=== PATIENT | male | born 1955 | race Caucasian/White ===

== ENCOUNTER → 2016-03-06 | Outpatient (CLI) | payer BC ==
[~2016-03-06] MED LIST: LEVO125T72 PO; RANI300T PO; TPRSR/25 PO
--- NOTE | 2016-03-07 05:37 | PAP/PSG TECHNICIAN REPORT ---
[facility] Air Filler Polysomnogram Report Study name: None Report date: 03/07/2016 Study date: 03/06/2016 Referring Physician: DR. BURGOS Name: CHANDLER DE LEON Interpreting Physician: Tigre Burgos M.D. Date of : 1955 Air Filler: Addison Paulino RPSTORRES. Sex: Male Age: 61 StudyType: PSG PAP Weight: 277 lbs 49.5 cm Height: 61 years, Height 5' 9" Neck Circum: BMI: 40.9 Medications: DICLOFEN SODIUM 1%, RANITIDINE HCL 300 MG, ATORVASTATIN CALCIUM 40 MG, SYHTHROID 125 MCG, ASPIRIN 81 MG, BYSTOLIC 5 MG Patient History PATIENT HAS HISTORY OF JESSICA AND HAS BEEN WEARING CPAP FOR MANY YEARS. HE CURRENTLY WEARS NASAL PILLOWS AND HAS BEEN HAVING TROUBLE WITH THE LEAK. HE HASN'T BEEN ABLE TO HAVE GOOD QUALITY OF SLEEP DUE TO THIS ISSUE. HE IS HERE TODAY FOR AN UPDATE ON HIS CPAP. ESS = 7 RM 4 Parameters Monitored NPSG: E1-M2, E2-M1, Fp1-M2, Fp2-M1, F3-M2, F4-M2, F4-M1, C3-M2, C4-M2, C4-M1, O1-M2, O2-M2, O2-M1, T3-M2, T4-M1, P3-M2, P4-M1, CHIN1, CHIN2, HR, EKG, Legs, PFLOW, SNOR, FLOW, CFLOW, Tidal Volume, THOR, ABDO, SpO2, PLTH, CPRESS, ETCO2 Wave, ETCO2, pH Sleep Architecture Sleep Stages Time at Lights Off 10:06:10 PM STAGES Time (min.) TST (%) Time at Lights On 5:14:10 AM Wake 39.5 -- Total Recording Time (TRT) 428.50 min. N1 30.5 8 Total Sleep Period (TSP) 411.0 min. N2 258.5 67 Total Sleep Time (TST) 388.5min. N3 27.0 7 Awake Time 40.0 min. REM 72.5 19 Wake after Sleep Onset 29.5 min. Sleep Efficiency (SE) 91 % Sleep Onset Latency (MARC) 10.0 min. Number of Stage 1 Shifts None Awakenings 17 Stage Changes 81 Number of REM periods 5 REM 72.5 19 REM Latency 99.0 min. NREM 316.0 81 Body Position Analysis Supine Right Left Side Prone Vertical Total Sleep Time (min.) 209.9 125.2 69.3 194.57 0.0 0.0 Total Sleep Time (%) 50% 32% 18% 50 0% N/A% Total Sleep Time REM (min.) 43.5 29.0 0.0 None 0.0 0.0 Total Sleep Time NREM (min.) 150.4 96.2 69.3 None 0.0 0.0 Intermittent Wake (min.) 16.0 18.9 4.6 None 0.0 0.0 Total Sleep Period (%) 49% None None None None None Arousals Myoclonus (PLM) * Events Count Index Events Count Index Spontaneous 25 4 Events Awake (PLMW) 24 36.5 Respiratory 9 1.4 Events Asleep w/ Arousal (PLMA) 5 0.8 PLM 5 1 Events Asleep w/o Arousal (PLMS) 32 4.9 Snoring 2 0 Total Asleep 37 5.7 Total 41 6 Total 61 9 Respiratory Analysis * CA OA MA CH H RERA Total Count 0 0 0 0 42 4 42 Index 0.0 0.0 0.0 0 6.5 1 7.1 Mean Duration 0.0 0.0 0.0 0.00 19.2 15.9 18.9 Longest Duration 0.0 0.0 0.0 0.00 0.0 20.0 31.3 Respiratory Event Summary Total Supine ~Supine Right Left Prone REM NREM Apneas Count 0 0 0 0 0 N/A 0 0 Index 0.0 0 0 0.0 0.0 N/A 0 0 Hypopneas (4% Desat) Count 42 20 22 17 5 N/A 12 30 Index 6.5 6.2 7 8.1 4.3 N/A 9.9 5.7 Apneas & All Hypopneas Count 42 20 22 17 5 N/A 12 30 Index 6.5 6 7 8 4 N/A 9.9 5.7 Respiratory Events (Barrel Loader+All Hyp+RERA) Count 42 22 24 17 7 N/A 12 30 Index 7.1 7 7 8.1 6.1 N/A 9.9 6.5 Respiratory Related Arousal Count 9 22 5 2 3 N/A 0 9 Index 1.4 1 2 1 3 N/A 0 2 Snoring Analysis Supine Right Left Prone REM NREM Total Snore duration 25.1 min Snores count 121 515 222 N/A 5 853 858 Snore mean duration 1.8 Sec Snores index 37 247 192 N/A 4.1 162.0 132.5 TST with snoring (%) 6.5% Desaturation Event Summary: Minimum %SpO2 Event Count Mean/Min/Max Duration(sec.) Desaturation Index % Time In Bed > 90 45 35.5 / 8.8 / 92.2 7.3 87.3 86 - 90 11 26.0 / 14.3 / 44.0 12.2 12.7 81 - 85 0 N/A 0.0 0.0 76 - 80 0 N/A 0.0 0.0 71 - 75 0 N/A 0.0 0.0 66 - 70 0 N/A 0.0 0.0 61 - 65 0 N/A 0.0 0.0 56 - 60 0 N/A 0.0 0.0 51 - 55 0 N/A 0.0 0.0 < 50 0 N/A 0.0 0.0 Total REM NREM Awake <50% 0.0 min. 0.0 min. 0.0 min. 0.0 min. 51 - 60% 0.0 min. 0.0 min. 0.0 min. 0.0 min. 61 - 70% 0.0 min. 0.0 min. 0.0 min. 0.0 min. 71 - 80% 0.0 min. 0.0 min. 0.0 min. 0.0 min. 81 - 90% 54.1 min. 7.9 min. 43.3 min. 3.0 min. 91 - 100% 371.9 min. 64.6 min. 272.7 min. 34.5 min. Average 92 92 92 94 Minimum SpO2 84 88 84 84 Desaturation Event Index 6.6 10.8 5.3 9.1 # Desat. Events below 89% 17 2 15 0 Time(%) with Saturation below 89% 2.8 0.1 2.6 0.1 Time(min.) with Saturation below 89% 11.9 0.6 11.1 0.3 Time (mins) REM (mins) NREM (mins) % of TST SpO2 Below 90% 32 10 N22 6.4 SpO2 Below 88% 9 0 0 1 Heart Rate Analysis Min (bpm) Max (bpm) Average (bpm) Awake 52 83 63 NREM 52 81 59 REM 52 66 57 Overall 52 81 59 Supplemental O2 Values Minimum O2 level: None Value Start Time End Time Air Filler Comments Mr. De Leon slept in the right, left and supine positions. No cardiac arrhythmia noted. Leg movements noted. No bruxism noted. CPAP was initiated at +4 CMH2O and up-titrated to an optimal level of +11 CMH2O, which nearly eliminated all respiratory events and snoring. A Singh and Paykel Eson size medium nasal mask was used during titration Mr. De Leon awoke to use the restroom 0 times during the night. Mr. De Leon stated I slept as well as I do when I am in my own bed. The final report will be interpreted and signed by a sleep physician. The completed physician report will then be placed in the patient medical record. Therapy Event: Therapy (cm H20) 4 6 7 8 9 10 11 Total Time at Pressure (min.) 28.0 14.9 13.7 49.8 21.7 78.0 221.9 TST at Pressure (min.) 18.0 14.9 12.7 46.3 21.7 73.0 201.9 # Periods 1 1 1 1 1 1 1 Sleep Onset (min.) 10.0 0.0 0.0 0.0 0.0 0.0 0.0 REM Onset (min.) N/A N/A N/A N/A 2.6 0.0 42.9 Sleep Efficiency % 64 100 92 93 100 93 91 Wakefulness (%) 35.8 0.0 7.3 7.0 0.0 6.4 9.0 Wakefulness (min.) 10.0 0.0 1.0 3.5 0.0 5.0 20.0 NREM 1 (%) 10.7 0.0 7.3 7.0 0.0 7.7 7.7 NREM 1 (min.) 3.0 0.0 1.0 3.5 0.0 6.0 17.0 NREM 2 (%) 53.5 100.0 85.4 70.9 12.1 39.8 66.7 NREM 2 (min.) 15.0 14.9 11.7 35.3 2.6 31.1 147.9 NREM 3 (%) 0.0 0.0 0.0 15.1 0.0 14.7 3.6 NREM 3 (min.) 0.0 0.0 0.0 7.5 0.0 11.5 8.0 REM (%) 0.0 0.0 0.0 0.0 87.9 31.3 13.1 REM (min.) 0.0 0.0 0.0 0.0 19.1 24.4 29.0 # Arousals 1 2 2 11 1 5 19 Arousal Index 3.3 8.0 9.5 14.3 2.8 4.1 5.6 # Snore 194 186 145 282 9 4 38 Snore Index 647.8 747.5 685.2 365.6 24.9 3.3 11.3 AHI 3.3 40.2 23.6 10.4 16.6 7.4 0.9 AHI Supine N/A N/A N/A 22.3 16.6 12.9 0.5 AHI Non-Supine 3.3 40.2 23.6 6.8 N/A 0.0 1.5 NREM AHI 3.3 40.2 23.6 10.4 0.0 4.9 0.7 REM AHI N/A N/A N/A N/A 18.9 12.3 2.1 RDI 3.3 40.2 23.6 15.6 16.6 7.4 0.9 # Obstructive 0 0 0 0 0 0 0 # Central Ap 0 0 0 0 0 0 0 # Mixed 0 0 0 0 0 0 0 # Hypopneas 1 10 5 8 6 9 3 RERAS 0 0 0 4 0 0 0 Total Respiratory Events 1 10 5 12 6 9 3 Time Below SpO2 89.00% (min.) 2.2 4.9 2.6 1.0 0.1 0.5 0.3 Mean NREM SpO2 (%) 90 89 90 91 92 93 93 Mean REM SpO2 (%) N/A N/A N/A N/A 93 92 92 Mean Sleep SpO2 (%) 90 89 90 91 93 93 93 Min NREM SpO2 (%) 87 86 84 88 91 90 88 Min REM SpO2 (%) N/A N/A N/A N/A 88 88 89 Position Supine (min.) 0.0 0.0 0.0 10.8 21.7 41.7 119.7 Position Non-supine (min.) 18.0 14.9 12.7 35.5 0.0 31.2 82.2 LM Index Sleep 0.0 0.0 9.5 20.7 11.1 7.4 1.8 LM Index NREM 0.0 0.0 9.5 20.7 0.0 7.4 1.7 LM Index REM N/A N/A N/A N/A 12.6 7.4 2.1 Mean Heart Rate (bpm) 66 68 66 59 58 57 58 Min Heart Rate (bpm) 62 63 57 55 53 52 52
--- NOTE | 2016-03-08 14:44 | POLYSOMNOGRAPH REPORT ---
CLINICAL DATA: A 61-year-old male with BMI of [address] Fritz and myself. He has a history of sleep apnea and has been on CPAP for years. He has been having problems with his interface and nasal pillows with leakage and has not had good quality sleep due to this issue. He is here for a CPAP update. SLEEP ARCHITECTURE: Total sleep period was 411 minutes. Total sleep time was 388.5 minutes divided between 316 minutes of non-REM sleep and 72.5 minutes of REM sleep. Sleep onset latency was 10 minutes. REM latency was 99 minutes. Sleep efficiency was 91%. Awake after sleep onset was 29.5 minutes. Sleep consisted of stage N1 8%, N2 67%, N3 7%, and REM 19%. AROUSAL DATA: 41 arousals were recorded for an index of 6 per hour. PERIODIC LIMB MOVEMENTS DATA: 37 limb movements during sleep were noted for an index of 5.7 per hour. RESPIRATORY DATA: There were 42 hypopneic episodes. The mean duration of hypopnea was 19.2 seconds. OXIMETRY DATA: Mild nocturnal hypoxemia was seen. Oxygen christine was 84% during non-REM sleep. The mean saturation was 92%. Time below 88% was 9 minutes. EKG: Heart rates ranged from 52-81 beats per minute. No arrhythmias were noted. RISK CONTROL MANAGER'S COMMENTS AND TREATMENT SUMMARY: The patient slept in the right, left, and supine position. He used a Singh [employer] Paykel Eson size medium nasal mask. He was started on CPAP and titrated up to 11 cm water pressure. At his final pressure setting, he slept for 201.9 minutes with an AHI of 0.9. IMPRESSION: Obstructive sleep apnea corrected with CPAP 11 cm water pressure utilizing a Singh and Paykel Eson size medium nasal mask. RECOMMENDATIONS: The patient should be changed to the above noted interface and have his CPAP adjusted to 11 cm of water pressure. [facility]
== END | disposition home or self-care (01) ==
LOC: C.NEUR 20:00
PROVIDERS: ATTEND Internal Medicine Pulmonary Disease
DX: G47.33 Obstructive sleep apnea (adult) (pediatric) (principal)

== ENCOUNTER → 2016-07-09 | Outpatient (CLI) | payer BC ==
[2016-07-09 07:58] LABS: ESTIMATED AVERAGE GLUCOSE 114 mg/dl; HA1C FLAG Normal (Normal)
[2016-07-09 08:15] LABS: ALT/SGPT 33 U/L (12-78); BLOOD UREA NITROGEN 11 mg/dl (7-18); BUN/CREATININE RATIO 9.5 (10-20); CARBON DIOXIDE 26 mmol/L (21-32); CHLORIDE 107 mmol/L (98-107); CHOLESTEROL 88 mg/dl (0-200); GLUCOSE 90 mg/dl (70-99); POTASSIUM 4.3 mmol/L (3.5-5.1); SODIUM 142 mmol/L (136-145); TRIGLYCERIDES 100 mg/dl (0-150); VERY LOW DENSITY LIPOPROT CALC 20 mg/dl
[2016-07-09 08:26] LABS: ALB/GLOB RATIO 1.1 (0.9-2); ALKALINE PHOSPHATASE 95 U/L (45-117); AST/SGOT 18 U/L (15-37); HDL CHOLESTEROL 29 mg/dl; LDL CHOLESTEROL CALCULATED 39 mg/dl
[2016-07-09 08:32] LABS: CALCIUM 8.8 mg/dl (8.5-10.1)
== END | disposition home or self-care (01) ==
LOC: C.LAB 07:12
PROVIDERS: ATTEND Family Medicine
DX: R73.01 Impaired fasting glucose (principal); E78.00 Pure hypercholesterolemia, unspecified; E03.9 Hypothyroidism, unspecified; E55.9 Vitamin D deficiency, unspecified

== ENCOUNTER → 2016-08-23 | Outpatient (CLI) | payer BC ==
[2016-08-23 13:43] LABS: URINE APPEARANCE CLEAR (CLEAR); URINE BILIRUBIN NEG (NEG); URINE COLOR YELLOW; URINE EPITHELIAL CELL AUTO 0-5 /lpf (0-5); URINE NITRITE NEG (NEG); URINE PH 5.5 (4.5-7.5); URINE SPECIFIC GRAVITY 1.012 (1.000-1.030); UROBILINOGEN NEG (NEG)
[2016-08-23 13:46] LABS: MANUAL MICROSCOPIC REQUIRED? NO; REVIEW REQ? NO
== END | disposition home or self-care (01) ==
LOC: C.LAB1850 09:21
PROVIDERS: ATTEND Family Medicine
DX: R30.0 Dysuria (principal)

== ENCOUNTER → 2016-10-04 | Outpatient (CLI) | payer BC ==
--- NOTE | 2016-10-08 11:41 | CODING QUERY MEDICAL NECESSITY ---
CQSUPPORTING DIAGNOSIS NEEDED A supporting diagnosis is required for the test/procedure performed on this patient in order for us to be reimbursed by the patient's insurance. Please provide a supporting diagnosis for the following test/procedure listed below next to the test name along with your signature. *If there is no additional diagnosis for this patient that would support the following test/procedure please document that below next to the test/procedure. Test(s)/Procedure(s) that require a supporting diagnosis: DOS 10/04/16 PROSTATE SPECIFIC ANTIGEN (PSA) TEST Provider Signature: Date: Thank you Melisa Pozo [facility] Information Management Once completed, please kindly fax back to [phone] For questions please call [phone]
== END | disposition home or self-care (01) ==
LOC: C.LAB 10:36
PROVIDERS: ATTEND Internal Medicine
DX: R39.9 Unspecified symptoms and signs involving the genitourinary system (principal); Z12.5 Encounter for screening for malignant neoplasm of prostate; R97.20 Elevated prostate specific antigen [PSA]

== ENCOUNTER → 2017-01-21 | Outpatient (CLI) | payer BC ==
[2017-01-21 12:16] LABS: BASO % 0.5 %; BASO ABS # 0.04 K/uL (0-0.2); COMPLETE YES; EOS % 1.6 %; HEMATOCRIT 40.7 % (42-52); IG% 0.4 %; LYMPH % 26.8 %; LYMPH ABS # 2.02 K/uL (1.2-3.4); MEAN CELL VOLUME 88.1 fL (80-100); MEAN CORPUSCULAR HEMOGLOBIN 29.7 pg (25-34); MEAN CORPUSCULAR HGB CONC 33.7 g/dl (32-36); MEAN PLATELET VOLUME 11.3 fL (7.4-10.4); MONO % 7.2 %; NEUT % 63.5 %; PLATELET COUNT 202 K/uL (130-400); RED BLOOD COUNT 4.62 M/uL (4.7-6.1); WHITE BLOOD COUNT 7.53 K/uL (4.8-10.8)
[2017-01-21 12:31] LABS: ESTIMATED AVERAGE GLUCOSE 114 mg/dl; HA1C FLAG Normal (Normal)
[2017-01-21 12:58] LABS: ALT/SGPT 45 U/L (12-78); AST/SGOT 23 U/L (15-37); BLOOD UREA NITROGEN 10 mg/dl (7-18); BUN/CREATININE RATIO 10.6 (10-20); CALCIUM 8.6 mg/dl (8.5-10.1); CARBON DIOXIDE 27 mmol/L (21-32); CHLORIDE 105 mmol/L (98-107); CREATININE 0.93 mg/dl (0.60-1.40); GLUCOSE 106 mg/dl (70-99); POTASSIUM 3.9 mmol/L (3.5-5.1); SODIUM 138 mmol/L (136-145)
[2017-01-21 13:07] LABS: ALB/GLOB RATIO 1.1 (0.9-2); ALKALINE PHOSPHATASE 93 U/L (45-117); CHOLESTEROL 90 mg/dl (0-200); CHOLESTEROL/HDL RATIO 2.4; HDL CHOLESTEROL 38 mg/dl; LDL CHOLESTEROL CALCULATED 27 mg/dl; THYROID STIMULATING HORMONE 0.762 uIu/ml (0.300-4.500); TRIGLYCERIDES 127 mg/dl (0-150); VERY LOW DENSITY LIPOPROT CALC 25 mg/dl
== END | disposition home or self-care (01) ==
LOC: C.LABBFT 10:29
PROVIDERS: ATTEND Internal Medicine
DX: E78.00 Pure hypercholesterolemia, unspecified (principal); R53.83 Other fatigue; I25.10 Atherosclerotic heart disease of native coronary artery without angina pectoris; E03.9 Hypothyroidism, unspecified; R73.01 Impaired fasting glucose; R73.03 Prediabetes; E55.9 Vitamin D deficiency, unspecified

== ENCOUNTER → 2017-02-14 | Outpatient (CLI) | payer OTHER ==
[2017-02-14 12:35] LABS: BASO % 0.4 %; BASO ABS # 0.03 K/uL (0-0.2); EOS % 2.4 %; EOS ABS # 0.17 K/uL (0-0.5); HEMATOCRIT 41.8 % (42-52); HEMOGLOBIN 13.8 g/dL (14.0-18.0); IG# 0.02 K/uL (0.00-0.02); LYMPH % 27.1 %; MEAN CELL VOLUME 87.6 fL (80-100); MEAN CORPUSCULAR HEMOGLOBIN 28.9 pg (25-34); MEAN PLATELET VOLUME 11.2 fL (7.4-10.4); MONO ABS # 0.84 K/uL (0.11-0.59); NEUT % 57.8 %; NEUT ABS # 4.06 K/uL (1.4-6.5); PLATELET COUNT 197 K/uL (130-400); RED CELL DISTRIBUTION WIDTH CV 13.5 % (11.5-14.5); RED CELL DISTRIBUTION WIDTH SD 43.5 fL (36.4-46.3); WHITE BLOOD COUNT 7.02 K/uL (4.8-10.8)
== END | disposition home or self-care (01) ==
LOC: C.LABBFT 09:55
PROVIDERS: ATTEND Internal Medicine
DX: D64.9 Anemia, unspecified (principal)

== ENCOUNTER 2024-01-24 01:36 | Observation (INO) ==
--- NOTE | 2024-01-24 02:05 | Emergency Department Note ---
History of Present Illness General Chief Complaint: Arrhythmia/Palpitations Stated Complaint: IRREG HEART BEAT Time Seen by Provider: 01/24/24 01:41 History of Present Illness Provider Complaint: + palpitations Onset (ago): 1 day(s) Duration: + Intermittent Context: + occurred during rest Associated symptoms: + chest pain, + shortness of breath and + other (Headache. Chills.); no syncope, no vomiting or no cough Home Medications Medication Instructions Recorded Confirmed Type levothyroxine 125 mcg tablet 125 mcg PO DAILY #90 tabs 06/03/23 01/24/24 Rx omeprazole 20 mg capsule,delayed 20 mg PO DAILY #90 caps 06/20/23 01/24/24 Rx release ergocalciferol (vitamin D2) 1,250 50,000 unit PO WK 08/13/23 01/24/24 History mcg (50,000 unit) capsule trazodone 50 mg tablet 50 mg PO HS PRN insomnia 08/13/23 01/24/24 History rosuvastatin 10 mg tablet 10 mg PO DAILY #90 tabs 09/20/23 01/24/24 Rx nebivolol 10 mg tablet 20 mg (2 x 10 mg) PO DAILY #180 10/15/23 01/24/24 Rx tabs semaglutide (weight loss) 1 mg/0.5 1 mg (0.5 mL) subcut Q7D #2 mL 11/13/23 01/24/24 Rx mL subcutaneous pen injector diltiazem HCl 120 mg 120 mg PO DAILY #90 caps 01/02/24 01/24/24 Rx capsule,extended release 24 hr allopurinol 100 mg tablet 100 mg PO DAILY 01/22/24 01/24/24 History zanubrutinib 80 mg capsule 80 mg PO DAILY 01/22/24 01/24/24 History (Brukinsa) tadalafil 5 mg tablet 5 mg PO UD 01/24/24 01/24/24 History Allergies Allergy/AdvReac Type Severity Reaction Status Date / Time Penicillins Allergy Unknown Unknown Verified 01/22/24 07:43 meloxicam Allergy Rash, Verified 01/22/24 07:43 entire body Past Med/Surg History Problem List (Updated 01/24/24 @ 04:13 by Gigi Pérez MD) Palpitations (Acute) Chest pain (Acute) Dyspnea Chest pain syndrome PPD positive, treated (Chronic) Obstructive sleep apnea (Chronic) treated with CPAP Impaired fasting glucose (Chronic) Apical variant hypertrophic cardiomyopathy (Chronic) Hypertension (Chronic) PVC (premature ventricular contraction) (Chronic) Lumbar spinal stenosis (Chronic) Lumbosacral facet joint syndrome Obesity Vitamin B12 deficiency NAFLD (nonalcoholic fatty liver disease) Dyspnea on exertion Medical History PAC (premature atrial contraction) Pre-diabetes Coronary artery disease CLL (chronic lymphocytic leukemia) GERD (gastroesophageal reflux disease) Hypercholesteremia Hypothyroidism Surgical History History of umbilical hernia repair History of rhinoplasty History of colonoscopy (03/11/17) normal, recheck in 10 years Family History Brother History of kidney cancer Thrombocytopenia Father Prostate cancer Mother Leukemia Denies family history of Ovarian cancer Myocardial infarction Breast cancer Colorectal cancer Social History Smoking Status: Never smoker Tobacco Type: Cigarettes Age Started Using Tobacco: 13; Age Quit Using Tobacco: 43; packs per day: 1; Second Hand Exposure: No; Do You Dip or Chew Tobacco: No; Hx Alcohol Use: No (Abstinent for years.) Hx Substance Use: No Preferred Language: Scottish Communication Ability: Effective Visual Impairment: No Limitations Hearing Ability: Normal Labor Relations Analyst Required: No marital status: Current Living Situation: Spouse current occupational status: retired Feels Safe at Home: Yes Childhood Exposure to Second-Hand Smoke: No Diet: Weight Watchers caffeine: Yes (2 cups in AM) during the past year weight has: remained stable Dental Care, Regularly: Yes Physical Activity Frequency: 3-4 Times per Week Physical Activity Frequency Comment: swimming, 60mins Seatbelt Use: always Sunscreen Use: No Assistive Devices: Glasses Physical Exam 2 Vital Signs: Vital Signs - 24 hr 01/24/24 01:40 01/24/24 01:51 01/24/24 01:55 Temperature 37 C Temperature Source Temporal Artery Sc an Pulse Rate 97 H 96 H 96 H Pulse Rate from Sp O2 Sensor 96 H Respiratory Rate 17 19 Respiratory Effort / Characteristics Respiratory Depth Respiratory Patter n Blood Pressure 141/70 H 117/85 Blood Pressure Sendy n 93 95 Pulse Oximetry 95 95 Oxygen Delivery Me thod Room Air Room Air Sepsis Recent Feve r Within 48 Hours No Sepsis New/Unexpla ined Change in Men roberto Status No Sepsis Action Take n by Nursing No Action Required 01/24/24 02:00 01/24/24 02:01 01/24/24 02:03 Temperature Temperature Source Pulse Rate 94 H 93 H Pulse Rate from Sp O2 Sensor 91 H Respiratory Rate 17 18 Respiratory Effort / Characteristics Respiratory Depth Respiratory Patter n Blood Pressure 140/66 Blood Pressure Sendy n 90 Pulse Oximetry 95 96 96 Oxygen Delivery Me thod Room Air Room Air Room Air Sepsis Recent Feve r Within 48 Hours Sepsis New/Unexpla ined Change in Men roberto Status Sepsis Action Take n by Nursing 01/24/24 02:05 01/24/24 03:03 01/24/24 03:30 Temperature Temperature Source Pulse Rate 89 89 Pulse Rate from Sp O2 Sensor 85 79 Respiratory Rate 18 21 Respiratory Effort / Characteristics Non-Labored Sponta neous Respiratory Depth Normal Respiratory Patter n Regular Blood Pressure 122/66 120/65 Blood Pressure Sendy n 84 83 Pulse Oximetry 95 93 Oxygen Delivery Me thod Room Air Room Air Room Air Sepsis Recent Feve r Within 48 Hours Sepsis New/Unexpla ined Change in Men roberto Status Sepsis Action Take n by Nursing Physical Exam: Physical Exam GENERAL: oriented to person, place, and time. appears well-developed and well- nourished. HENT: Exam performed. - Head: Normocephalic and atraumatic. EYES: Conjunctivae and EOM are normal. Right eye exhibits no discharge. Left eye exhibits no discharge. No scleral icterus. NECK: Normal range of motion. Neck supple. No JVD present. CV: Normal rate, regular rhythm, normal heart sounds and intact distal pulses. 1+ pitting edema of the bilateral lower extremities. Palpable radial pulses bue. PULM/CHEST: Effort normal and breath sounds normal. No respiratory distress. No stridor. no wheezes. no rales. ABD: The abdomen is soft. There is no tenderness. NEURO: Motor and sensation grossly intact. SKIN: Skin is warm and dry. He is not diaphoretic. PSYCH: normal mood and affect. Behavior is normal. Judgment and thought content normal. Course Course 0141: The patient was evaluated in room A11. A complete history and physical exam was performed Cardiac monitoring: An order was placed for continuous cardiac monitoring. The monitor shows a rate of 90 with sinus rhythm interpreted by ga 0412: Vital signs stable. White blood cell count 137.47. Hemoglobin 12.6. Lactic acid troponin negative. CTA negative for PE but does show possible pulmonary hypertension. Patient will be admitted to the [facility] team Dr. Haynes states he will evaluate the patient for admission. Administered Medications Discontinued Medications Ioversol (Optiray 320 125ml) 125 ml IV ONCE ONE Stop: 01/24/24 02:30 Last Admin: 01/24/24 02:31 Dose: 118 ml Documented By: HAN Medical Decision Making Laboratory Data Attestation: I reviewed the patient's lab results. 01/24/24 01:53 01/24/24 01:53 Lab Results 01/24/24 01/24/24 01/24/24 Range/Units 01:53 01:55 02:36 WBC 137.47 H* (4.8-10.8) K/ul RBC 4.71 (4.70-6.10) M/uL Hgb 12.6 L (14.0-18.0) g/dl POC Hgb 13.9 L (14.0-18.0) g/dl Hct 41.8 L (42.0-52.0) % POC Hct 41 L (42-52) % MCV 88.7 (80.0-100.0) fL MCH 26.8 (25.0-34.0) pg MCHC 30.1 L (32.0-36.0) g/dL RDW Std Deviation 44.0 (36.4-46.3) fL RDW Coeff of Doe 13.9 (11.5-14.5) % Plt Count 165 (130-400) K/uL MPV 11.5 (9.4-12.4) fL Immature Gran % (Auto) 0.2 % Neut % (Auto) 5.3 % Lymph % (Auto) 93.9 % [place] % (Auto) 0.5 % Eos % (Auto) 0.0 % Baso % (Auto) 0.1 % Neut # (Auto) 7.30 H (1.40-6.50) K/uL Lymph # (Auto) 129.02 H (1.20-3.40) K/uL [place] # (Auto) 0.73 H (0.11-0.59) K/uL Eos # (Auto) 0.03 (0.00-0.50) K/uL Baso # (Auto) 0.11 (0.00-0.20) K/uL Immature Gran # (Auto) 0.28 H (0.01-0.20) K/uL Smudge Cells Present Polychromasia 1+ PT 10.4 (9.0-12.0) Seconds INR 1.0 (0.9-1.1) APTT 28 (21-31) Seconds PTT Ratio 1.0 POC Sodium 139 (135-144) mmol/L Sodium 137 (136-145) mmol/L POC Potassium 4.3 (3.3-5.0) mmol/L Potassium 4.8 (3.5-5.1) mmol/L POC Chloride 105 (101-112) mmol/L Chloride 107 (98-107) mmol/L Carbon Dioxide 25 (21-32) mmol/L POC Total CO2 21 L (24-31) mmol/L Anion Gap 5 (3-11) POC Anion Gap 18.0 (16-25) mmol/L POC BUN 11 (7-18) mg/dl BUN 12 (6-23) mg/dl Creatinine 1.31 (0.6-1.4) mg/dl POC Creatinine 1.4 H (0.6-1.3) mg/dl Est Cr Clr Drug Dosing 64.2 ml/min eGFR 59.29 BUN/Creatinine Ratio 9.2 L (10-20) Glucose 122 H (70-99(Fasting)) mg/dl POC Glucose (other) 122 H (70-99) mg/dl Lactate (0.4-2.0) mmol/L Calcium 8.4 L (8.6-10.3) mg/dl POC Ioniz Calcium Son 1.14 (1.12-1.32) mmol/l Magnesium 1.9 (1.7-2.4) mg/dl Troponin I High Sens 16.8 (0-20) pg/ml Lipase 47 (11-82) U/L SARS-CoV-2 (PCR) NEGATIVE (Negative) Influenza Type A (PCR) Negative (Neg) Influenza Type B (PCR) Negative (Neg) RSV (RT-PCR) Negative (Neg) 01/24/24 Range/Units 02:41 WBC (4.8-10.8) K/ul RBC (4.70-6.10) M/uL Hgb (14.0-18.0) g/dl POC Hgb (14.0-18.0) g/dl Hct (42.0-52.0) % POC Hct (42-52) % MCV (80.0-100.0) fL MCH (25.0-34.0) pg MCHC (32.0-36.0) g/dL RDW Std Deviation (36.4-46.3) fL RDW Coeff of Doe (11.5-14.5) % Plt Count (130-400) K/uL MPV (9.4-12.4) fL Immature Gran % (Auto) % Neut % (Auto) % Lymph % (Auto) % [place] % (Auto) % Eos % (Auto) % Baso % (Auto) % Neut # (Auto) (1.40-6.50) K/uL Lymph # (Auto) (1.20-3.40) K/uL [place] # (Auto) (0.11-0.59) K/uL Eos # (Auto) (0.00-0.50) K/uL Baso # (Auto) (0.00-0.20) K/uL Immature Gran # (Auto) (0.01-0.20) K/uL Smudge Cells Polychromasia PT (9.0-12.0) Seconds INR (0.9-1.1) APTT (21-31) Seconds PTT Ratio POC Sodium (135-144) mmol/L Sodium (136-145) mmol/L POC Potassium (3.3-5.0) mmol/L Potassium (3.5-5.1) mmol/L POC Chloride (101-112) mmol/L Chloride (98-107) mmol/L Carbon Dioxide (21-32) mmol/L POC Total CO2 (24-31) mmol/L Anion Gap (3-11) POC Anion Gap (16-25) mmol/L POC BUN (7-18) mg/dl BUN (6-23) mg/dl Creatinine (0.6-1.4) mg/dl POC Creatinine (0.6-1.3) mg/dl Est Cr Clr Drug Dosing ml/min eGFR BUN/Creatinine Ratio (10-20) Glucose (70-99(Fasting)) mg/dl POC Glucose (other) (70-99) mg/dl Lactate 1.1 (0.4-2.0) mmol/L Calcium (8.6-10.3) mg/dl POC Ioniz Calcium Son (1.12-1.32) mmol/l Magnesium (1.7-2.4) mg/dl Troponin I High Sens (0-20) pg/ml Lipase (11-82) U/L SARS-CoV-2 (PCR) (Negative) Influenza Type A (PCR) (Neg) Influenza Type B (PCR) (Neg) RSV (RT-PCR) (Neg) Imaging Data Radiologist's Impression: Chest CTA 01/24/24 01:47 EXAM: CT angio chest PE protocol CLINICAL HISTORY: chest pain eval for pe, 118 ml optiray 320 TECHNIQUE: Contiguous axial images were obtained from the neck base through the upper abdomen following intravenous administration of iodinated contrast material. Angiographic images were processed, 3D MIP images were acquired for interpretation. If IV contrast material had not been administered, the likelihood of detecting abnormalities relevant to the patient's condition would have been substantially decreased. Coronal and sagittal 3-D MIPs were likewise performed and indicated to increase the sensitivity of detectin diffuse clinically relevant pathology. CT scan was performed according to ALARA (as low as reasonable achievable). 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 FINDINGS: Mild dilatation of pulmonary trunk ,bilateral main pulmonary artery up to subsegmental level with mild tortuosity - suggest possibility of pulmonary arterial hypertension. Diffuse ground-glass haze with multiple area of air trapping are noted involving both lungs giving mosaic attenuation. Adequate contrast bolus without evidence of pulmonary embolism. The central airways are patent. The lungs are clear. No pleural effusion. The heart, aorta, and pulmonary arteries are of normal size and configuration. There are no appreciable coronary artery and aortic atherosclerotic calcifications. No pericardial effusion is identified. The thyroid is unremarkable. No mediastinal, hilar, or axillary lymphadenopathy is noted. No suspicious lytic or sclerotic osseous lesions are identified. IMPRESSION: 1. Mild dilatation of pulmonary trunk ,bilateral main pulmonary artery up to subsegmental level with mild tortuosity - suggest possibility of pulmonary arterial hypertension -new finding. 2. Diffuse ground-glass haze with multiple area of air trapping are noted involving both lungs giving mosaic attenuation-new finding. 3. No evidence of pulmonary embolism. Electronically signed by Frank Sullivan 01-24-2024 03:[address] 01/24/24 01:47 EXAM: CT head/brain w con CLINICAL HISTORY: HEADACHE, 118 ML OPTIRAY 320 TECHNIQUE: Multiple axial images are obtained from the skull base to the vertex with contrast. CT scan was performed according to ALARA (as low as reasonable achievable). COMPARISON: None. FINDINGS: There is cerebral atrophy. No evidence of space occupying lesion, hemorrhage, edema, mass effect, midline shift, extra axial collection, or hydrocephalus is noted. Basal cisterns are symmetric and normal in size and configuration. There are scattered periventricular hypodensities as can be seen with chronic microvascular ischemic changes. The nayak-white matter differentiation is preserved. Visualized paranasal sinuses and mastoid air cells are well aerated. Orbital contents are within normal limits. Bony structures are intact. IMPRESSION: 1. No evidence of acute intracranial abnormality is demonstrated. 2. Chronic microvascular ischemic changes. 3. Cerebral atrophy. Electronically signed by Frank Sullivan 01-24-2024 03:17 AM ECG Data Attestation: I personally reviewed and interpreted this ECG as follows: Indication: palpitations Rate (beats per minute): 96 Rhythm: normal sinus Findings: + 1st degree AV block and + PVC; no ST depression, no ST elevation or no prolonged QT MDM Narrative 0141: The patient was evaluated in room A11. A complete history and physical exam was performed Cardiac monitoring: An order was placed for continuous cardiac monitoring. The monitor shows a rate of 90 with sinus rhythm interpreted by me 0412: Vital signs stable. White blood cell count 137.47. Hemoglobin 12.6. Lactic acid troponin negative. CTA negative for PE but does show possible pulmonary hypertension. Patient will be admitted to the [facility] team Dr. Haynes states he will evaluate the patient for admission. Impression & Plan Chest pain, Palpitations Discharge Plan Visit Data Chief Complaint: Arrhythmia/Palpitations Stated Complaint: IRREG HEART BEAT ED Provider: Gigi Pérez Discharge Problem: Chest pain, Palpitations Patient Disposition: Admitted As Inpatient Forms Stand Alone Forms: My [facility] Prescriptions Prescriptions: No Action levothyroxine 125 mcg tablet 125 mcg PO DAILY Qty: 90 3RF omeprazole 20 mg capsule,delayed release(DR/EC) 20 mg PO DAILY Qty: 90 3RF rosuvastatin 10 mg tablet 10 mg PO DAILY Qty: 90 3RF nebivolol 10 mg tablet 20 mg PO DAILY Qty: 180 3RF allopurinol 100 mg tablet 100 mg PO DAILY Brukinsa 80 mg capsule 80 mg PO DAILY diltiazem HCl 120 mg capsule,extended release 24hr 120 mg PO DAILY Qty: 90 3RF semaglutide (weight loss) 1 mg/0.5 mL pen injector 1 mg subcut Q7D Qty: 2 5RF trazodone 50 mg tablet 50 mg PO HS PRN (Reason: insomnia) Rx Instructions: TAKES ROUTINE ergocalciferol (vitamin D2) 1,250 mcg (50,000 unit) capsule 50,000 unit PO WK Rx Instructions: TAKE ONE CAPSULE BY MOUTH WEEKLY. Fri tadalafil 5 mg tablet 5 mg PO UD Referrals Referrals: Nayely Zaman MD [Primary Care Provider] - Discharge Problem: Chest pain Qualifiers: Chest pain type: unspecified Qualified Code(s): R07.9 - Chest pain, unspecified
[2024-01-24 02:07] LABS: iSTAT Creatinine 1.4 mg/dl (0.6-1.3); iSTAT Hemoglobin 13.9 g/dl (14.0-18.0); iSTAT Ionized Calcium 1.14 mmol/l (1.12-1.32); iSTAT Potassium 4.3 mmol/L (3.3-5.0)
[2024-01-24 02:31] LABS: BUN Creatinine Ratio 9.2 (10-20); Calcium 8.4 mg/dl (8.6-10.3); Creatinine Clr Calc Pharmacy 64.2 ml/min; Magnesium 1.9 mg/dl (1.7-2.4); Potassium 4.8 mmol/L (3.5-5.1)
[2024-01-24] MEDS: OPTIRAY 320 125ml IV ONE (02:31)
[2024-01-24 02:38] LABS: Troponin I High Sensitivity 16.8 pg/ml (0-20)
[2024-01-24 02:40] LABS: Partial Thromboplastin Time 28 Seconds (21-31); Prothrombin Time 10.4 Seconds (9.0-12.0)
--- NOTE | 2024-01-24 03:14 | CT Scan Report ---
EXAM: CT angio chest PE protocol CLINICAL HISTORY: chest pain eval for pe, 118 ml optiray 320 TECHNIQUE: Contiguous axial images were obtained from the neck base through the upper abdomen following intravenous administration of iodinated contrast material. Angiographic images were processed, 3D MIP images were acquired for interpretation. If IV contrast material had not been administered, the likelihood of detecting abnormalities relevant to the patient's condition would have been substantially decreased. Coronal and sagittal 3-D MIPs were likewise performed and indicated to increase the sensitivity of detectin diffuse clinically relevant pathology. CT scan was performed according to ALARA (as low as reasonable achievable). 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 FINDINGS: Mild dilatation of pulmonary trunk ,bilateral main pulmonary artery up to subsegmental level with mild tortuosity - suggest possibility of pulmonary arterial hypertension. Diffuse ground-glass haze with multiple area of air trapping are noted involving both lungs giving mosaic attenuation. Adequate contrast bolus without evidence of pulmonary embolism. The central airways are patent. The lungs are clear. No pleural effusion. The heart, aorta, and pulmonary arteries are of normal size and configuration. There are no appreciable coronary artery and aortic atherosclerotic calcifications. No pericardial effusion is identified. The thyroid is unremarkable. No mediastinal, hilar, or axillary lymphadenopathy is noted. No suspicious lytic or sclerotic osseous lesions are identified. IMPRESSION: 1. Mild dilatation of pulmonary trunk ,bilateral main pulmonary artery up to subsegmental level with mild tortuosity - suggest possibility of pulmonary arterial hypertension -new finding. 2. Diffuse ground-glass haze with multiple area of air trapping are noted involving both lungs giving mosaic attenuation-new finding. 3. No evidence of pulmonary embolism. Electronically signed by Frank Sullivan 01-24-2024 03:14 AM
--- NOTE | 2024-01-24 03:17 | CT Scan Report ---
EXAM: CT head/brain w con CLINICAL HISTORY: HEADACHE, 118 ML OPTIRAY 320 TECHNIQUE: Multiple axial images are obtained from the skull base to the vertex with contrast. CT scan was performed according to ALARA (as low as reasonable achievable). COMPARISON: None. FINDINGS: There is cerebral atrophy. No evidence of space occupying lesion, hemorrhage, edema, mass effect, midline shift, extra axial collection, or hydrocephalus is noted. Basal cisterns are symmetric and normal in size and configuration. There are scattered periventricular hypodensities as can be seen with chronic microvascular ischemic changes. The nayak-white matter differentiation is preserved. Visualized paranasal sinuses and mastoid air cells are well aerated. Orbital contents are within normal limits. Bony structures are intact. IMPRESSION: 1. No evidence of acute intracranial abnormality is demonstrated. 2. Chronic microvascular ischemic changes. 3. Cerebral atrophy. Electronically signed by Frank Sullivan 01-24-2024 03:17 AM
[2024-01-24 03:24] LABS: Hematocrit (blood only) 41.8 % (42.0-52.0); Hemoglobin 12.6 g/dl (14.0-18.0); Mean Corpuscular Hemoglobin 26.8 pg (25.0-34.0); Mean Corpuscular Hgb Conc 30.1 g/dL (32.0-36.0); Mean Corpuscular Volume 88.7 fL (80.0-100.0); Mean Platelet Volume 11.5 fL (9.4-12.4); Platelet Count 165 K/uL (130-400); RDW Coefficient of Variation 13.9 % (11.5-14.5); Red Blood Count 4.71 M/uL (4.70-6.10); White Blood Count 137.47 K/ul (4.8-10.8)
[2024-01-24 03:27] LABS: Basophils # (auto) 0.11 K/uL (0.00-0.20); Basophils % (auto) 0.1 %; Eosinophils # (auto) 0.03 K/uL (0.00-0.50); Immature Granulocytes # (auto) 0.28 K/uL (0.01-0.20); Immature Granulocytes % (auto) 0.2 %; Lymphocytes # (auto) 129.02 K/uL (1.20-3.40); Lymphocytes % (auto) 93.9 %; Monocytes # (auto) 0.73 K/uL (0.11-0.59); Monocytes % (auto) 0.5 %; Neutrophils % (auto) 5.3 %; Polychromasia 1+; Smudge Cells Present
[2024-01-24 03:35] LABS: Influenza A virus by PCR Negative (Neg); Influenza B virus by PCR Negative (Neg); RSV by PCR Negative (Neg); SARS CoV2 RNA(COVID-19) Ceph NEGATIVE (Negative)
[2024-01-24] MEDS: MAGNESIUM SULFATE / D5W 1 GM/100 ML BAG IV STA (04:53)
--- NOTE | 2024-01-24 04:54 | History & Physical Report ---
Date of Service January 24, 2024 Assessment & Plan (1) Palpitations: (2) Chest pain: (3) Apical variant hypertrophic cardiomyopathy: (4) PVC (premature ventricular contraction): (5) CLL (chronic lymphocytic leukemia): (6) Acute kidney injury superimposed on CKD: (7) Obesity: (8) Impaired fasting glucose: (9) NSVT (nonsustained ventricular tachycardia): (10) Obstructive sleep apnea: Plan Palpitations/PVCs/chest pain/nonsustained V. tach history/apical variant hypertrophic cardiomyopathy/CAD- Patient was awoken from sleep with severe episode of palpitations, but reportedly with not presyncopal. Duration was about 1 and half to 2 hours, and due to significant intensity, he presented to the ED for assessment. He did have a recording from his watch, which did show some PVCs, but also did show 2 episodes of dropped heartbeats, suggestive of possible short-lived heart block While on monitor ED, patient had 1-2 PVCs per rhythm strip on monitor, with a few PACs Patient did have an echocardiogram performed at [facility] on 01/06/2024, which showed ejection fraction 55-59%, apical hypertrophic cardiomyopathy, and question of a small apical aneurysm with suggestion of need for possible cardiac MRI. Initial troponin 16.8, with follow-up pending The patient will be admitted to telemetry for serial cardiac enzymes, serial EKG's, cardiac rhythm monitoring Will hold off on performing repeat echocardiogram since is done 2 weeks ago Consult cardiology, discussed possibility of implantable monitoring tech due to concerns regarding possible recurrent episode of nonsustained V. tach, as he had been noted to have a previous 11 beat run on his Kardia monitor Continue nebivolol 20 mg p.o. at 10 PM He did have the addition of Cardizem CD 120 mg, which he takes at 9 AM at his last office visit on 01/02/2024, which will be held until seen by cardiology this morning Magnesium 1.9 admission, give 1 g magnesium sulfate IV Of note, patient was negative for COVID, flu and RSV testing this evening CLL- Began Brukinsa with Dr. Sanders from [facility] hematology oncology about 6 days ago His WBC reported on 01/20/2024 was 141.86, and in the ED tonight is 137.47,, with no blast cells identified Consult Dr. Sanders/Morse Patient's will bring in his Brukinsa from home beginning with his a.m. dose Pulmonary hypertension/JESSICA on CPAP/COPD- Patient may use own CPAP, if his can bring it in Had not had any significant symptoms with COPD, or breathing difficulties, is not presently using inhalers Pulmonary artery hypertension is noted to be a new finding on CTA chest this evening, which was also negative for PE Patient has follow-up with Dr. Ewing in the outpatient setting Consult Dr. Combs, who is on-call for pulmonology Acute kidney injury superimposed on CKD- Creatinine 1.31 on admission, with base 1.15 from August, but 3 days ago was 1.5 at [facility] Continue fluid intake, and follow laboratory serially Weight management- He reports being on Wegovy/semaglutide for a few months Hold at this time, and review for compatibility with other meds Hypothyroidism- Add TSH and free T4 to current labs History of Present Illness Chief Complaint: The patient presents to the emergency department after being awoken by a severe episode of palpitations that lasted about 1-1/2 to 2 hours, and caused him to finally presented to the ED for assessment. Primary Care Provider: Nayely Zaman MD The patient is a 68-year-old male with past medical history including CLL now on Brukinsa, JESSICA, impaired fasting glucose, apical variant hypertrophic cardiomyopathy, hypertension, PVCs, PACs, history of 11 beat run of nonsustained V. tach, NAFLD, morbid obesity, vitamin B12 deficiency. The patient presents to the emergency department after being awoken by severe episode of palpitations as noted above. Allergies Allergy/AdvReac Type Severity Reaction Status Date / Time Penicillins Allergy Unknown Unknown Verified 01/22/24 07:43 meloxicam Allergy Rash, Verified 01/22/24 07:43 entire body Home Medications Medication Instructions Recorded Confirmed Type levothyroxine 125 mcg tablet 125 mcg PO DAILY #90 tabs 06/03/23 01/24/24 Rx omeprazole 20 mg capsule,delayed 20 mg PO DAILY #90 caps 06/20/23 01/24/24 Rx release ergocalciferol (vitamin D2) 1,250 50,000 unit PO WK 08/13/23 01/24/24 History mcg (50,000 unit) capsule trazodone 50 mg tablet 50 mg PO HS PRN insomnia 08/13/23 01/24/24 History rosuvastatin 10 mg tablet 10 mg PO DAILY #90 tabs 09/20/23 01/24/24 Rx nebivolol 10 mg tablet 20 mg (2 x 10 mg) PO DAILY #180 10/15/23 01/24/24 Rx tabs semaglutide (weight loss) 1 mg/0.5 1 mg (0.5 mL) subcut Q7D #2 mL 11/13/23 01/24/24 Rx mL subcutaneous pen injector diltiazem HCl 120 mg 120 mg PO DAILY #90 caps 01/02/24 01/24/24 Rx capsule,extended release 24 hr allopurinol 100 mg tablet 100 mg PO DAILY 01/22/24 01/24/24 History zanubrutinib 80 mg capsule 80 mg PO BID 01/22/24 01/24/24 History (Brukinsa) tadalafil 5 mg tablet 5 mg PO UD 01/24/24 01/24/24 History Past Med/Surg History Problem List (Updated 01/24/24 @ 05:21 by Lee Power MD) Acute kidney injury superimposed on CKD CLL (chronic lymphocytic leukemia) Palpitations (Acute) Chest pain (Acute) Dyspnea Chest pain syndrome PPD positive, treated (Chronic) Obstructive sleep apnea (Chronic) treated with CPAP Impaired fasting glucose (Chronic) Apical variant hypertrophic cardiomyopathy (Chronic) Hypertension (Chronic) PVC (premature ventricular contraction) (Chronic) Lumbar spinal stenosis (Chronic) Lumbosacral facet joint syndrome Obesity Vitamin B12 deficiency NAFLD (nonalcoholic fatty liver disease) Dyspnea on exertion Medical History (Updated 01/24/24 @ 05:21 by Lee Power MD) NSVT (nonsustained ventricular tachycardia) PAC (premature atrial contraction) Pre-diabetes Coronary artery disease GERD (gastroesophageal reflux disease) Hypercholesteremia Hypothyroidism Surgical History History of umbilical hernia repair History of rhinoplasty History of colonoscopy (03/11/17) normal, recheck in 10 years Family History Brother History of kidney cancer Thrombocytopenia Father Prostate cancer Mother Leukemia Denies family history of Ovarian cancer Myocardial infarction Breast cancer Colorectal cancer Social History Smoking Status: Never smoker Tobacco Type: Cigarettes Age Started Using Tobacco: 13; Age Quit Using Tobacco: 43; packs per day: 1; Second Hand Exposure: No; Do You Dip or Chew Tobacco: No; Hx Alcohol Use: No (Abstinent for years.) Hx Substance Use: No Preferred Language: Turkmen Communication Ability: Effective Visual Impairment: No Limitations Hearing Ability: Normal Critical Care Physician Assistant Required: No marital status: Current Living Situation: Spouse current occupational status: retired Feels Safe at Home: Yes Childhood Exposure to Second-Hand Smoke: No Diet: Weight Watchers caffeine: Yes (2 cups in AM) during the past year weight has: remained stable Dental Care, Regularly: Yes Physical Activity Frequency: 3-4 Times per Week Physical Activity Frequency Comment: swimming, 60mins Seatbelt Use: always Sunscreen Use: No Assistive Devices: Glasses Review of Systems Review of Systems: The patient denies cough, lower extremity swelling, sore throat, fevers, chills, sweats, weight change, fatigue, nausea, vomiting, diarrhea , constipation, abdominal pain, pelvic pain, blood in urine or stool, dysuria, urinary frequency or urgency, lightheadedness, dizziness, headache, memory loss, loss of consciousness, rash, abnormal bruising or bleeding, imbalance, focal or generalized weakness, numbness or tingling in arms or legs, generalized arthralgias or myalgias, back or neck pain, or night sweats. The review of systems is otherwise negative other than for that already noted above, and at least 10 systems have been reviewed. Physical Exam Physical Exam: The patient is awake, alert and oriented 3, well developed and well nourished, normocephalic and atraumatic, lying in bed and in no acute distress. HEENT--PERRL, EOMI, mucous membranes and oropharynx mildly dry. Neck--supple. No JVD. No bruits. Thyroid normal, trachea midline, no adenopathy. Heart--normal S1 and S2. Frequent PVCs. No murmurs, rubs or gallops. Lungs--clear bilaterally, no respiratory distress, no accessory muscle use. Abdomen--normal bowel sounds and soft. Nontender. Nondistended. Obese Extremities--No edema. Dermatologic--normal skin turgor, normal color, no abnormal lymph nodes, no rash. Neurologic--cranial nerves II through XII grossly intact. Rheumatologic--normal range of motion. Psychiatric--normal affect. Results & Data Results & Data Vital Signs (Past 12 Hours) Vital Signs Temp Pulse Resp BP Pulse Ox O2 Del Method 01/24/24 04:30 84 20 124/64 96 Room Air 01/24/24 04:03 85 20 144/69 H 95 Room Air 01/24/24 03:30 89 21 120/65 93 Room Air 01/24/24 03:03 89 18 122/66 95 Room Air 01/24/24 02:05 Room Air 01/24/24 02:03 93 H 18 96 Room Air 01/24/24 02:01 96 Room Air 01/24/24 02:00 94 H 17 140/66 95 Room Air 01/24/24 01:55 96 H 01/24/24 01:51 96 H 19 117/85 95 Room Air 01/24/24 01:40 37 C 97 H 17 141/70 H 95 Room Air Laboratory Results Laboratory Results WBC 137.47 K/ul (4.8-10.8) H* 01/24/24 01:53 RBC 4.71 M/uL (4.70-6.10) 01/24/24 01:53 Hgb 12.6 g/dl (14.0-18.0) L 01/24/24 01:53 POC Hgb 13.9 g/dl (14.0-18.0) L 01/24/24 01:55 Hct 41.8 % (42.0-52.0) L 01/24/24 01:53 POC Hct 41 % (42-52) L 01/24/24 01:55 MCV 88.7 fL (80.0-100.0) 01/24/24 01:53 MCH 26.8 pg (25.0-34.0) 01/24/24 01:53 MCHC 30.1 g/dL (32.0-36.0) L 01/24/24 01:53 RDW Std Deviation 44.0 fL (36.4-46.3) 01/24/24 01:53 RDW Coeff of Doe 13.9 % (11.5-14.5) 01/24/24 01:53 Plt Count 165 K/uL (130-400) 01/24/24 01:53 MPV 11.5 fL (9.4-12.4) 01/24/24 01:53 Immature Gran % (Auto) 0.2 % 01/24/24 01:53 Neut % (Auto) 5.3 % 01/24/24 01:53 Lymph % (Auto) 93.9 % 01/24/24 01:53 [place] % (Auto) 0.5 % 01/24/24 01:53 Eos % (Auto) 0.0 % 01/24/24 01:53 Baso % (Auto) 0.1 % 01/24/24 01:53 Neut # (Auto) 7.30 K/uL (1.40-6.50) H 01/24/24 01:53 Lymph # (Auto) 129.02 K/uL (1.20-3.40) H 01/24/24 01:53 [place] # (Auto) 0.73 K/uL (0.11-0.59) H 01/24/24 01:53 Eos # (Auto) 0.03 K/uL (0.00-0.50) 01/24/24 01:53 Baso # (Auto) 0.11 K/uL (0.00-0.20) 01/24/24 01:53 Immature Gran # (Auto) 0.28 K/uL (0.01-0.20) H 01/24/24 01:53 Smudge Cells Present 01/24/24 01:53 Polychromasia 1+ 01/24/24 01:53 PT 10.4 Seconds (9.0-12.0) 01/24/24 01:53 INR 1.0 (0.9-1.1) 01/24/24 01:53 APTT 28 Seconds (21-31) 01/24/24 01:53 PTT Ratio 1.0 01/24/24 01:53 POC Sodium 139 mmol/L (135-144) 01/24/24 01:55 Sodium 137 mmol/L (136-145) 01/24/24 01:53 POC Potassium 4.3 mmol/L (3.3-5.0) 01/24/24 01:55 Potassium 4.8 mmol/L (3.5-5.1) 01/24/24 01:53 POC Chloride 105 mmol/L (101-112) 01/24/24 01:55 Chloride 107 mmol/L (98-107) 01/24/24 01:53 Carbon Dioxide 25 mmol/L (21-32) 01/24/24 01:53 POC Total CO2 21 mmol/L (24-31) L 01/24/24 01:55 Anion Gap 5 (3-11) 01/24/24 01:53 POC Anion Gap 18.0 mmol/L (16-25) 01/24/24 01:55 POC BUN 11 mg/dl (7-18) 01/24/24 01:55 BUN 12 mg/dl (6-23) 01/24/24 01:53 Creatinine 1.31 mg/dl (0.6-1.4) 01/24/24 01:53 POC Creatinine 1.4 mg/dl (0.6-1.3) H 01/24/24 01:55 Est Cr Clr Drug Dosing 64.2 ml/min 01/24/24 01:53 eGFR 59.29 01/24/24 01:53 BUN/Creatinine Ratio 9.2 (10-20) L 01/24/24 01:53 Glucose 122 mg/dl (70-99(Fasting)) H 01/24/24 01:53 POC Glucose (other) 122 mg/dl (70-99) H 01/24/24 01:55 Lactate 1.1 mmol/L (0.4-2.0) 01/24/24 02:41 Calcium 8.4 mg/dl (8.6-10.3) L 01/24/24 01:53 POC Ioniz Calcium Son 1.14 mmol/l (1.12-1.32) 01/24/24 01:55 Magnesium 1.9 mg/dl (1.7-2.4) 01/24/24 01:53 Troponin I High Sens 16.8 pg/ml (0-20) 01/24/24 01:53 Lipase 47 U/L (11-82) 01/24/24 01:53 SARS-CoV-2 (PCR) NEGATIVE (Negative) 01/24/24 02:36 Influenza Type A (PCR) Negative (Neg) 01/24/24 02:36 Influenza Type B (PCR) Negative (Neg) 01/24/24 02:36 RSV (RT-PCR) Negative (Neg) 01/24/24 02:36 Impressions Chest CTA 01/24/24 01:47 EXAM: CT angio chest PE protocol CLINICAL HISTORY: chest pain eval for pe, 118 ml optiray 320 TECHNIQUE: Contiguous axial images were obtained from the neck base through the upper abdomen following intravenous administration of iodinated contrast material. Angiographic images were processed, 3D MIP images were acquired for interpretation. If IV contrast material had not been administered, the likelihood of detecting abnormalities relevant to the patient's condition would have been substantially decreased. Coronal and sagittal 3-D MIPs were likewise performed and indicated to increase the sensitivity of detectin diffuse clinically relevant pathology. CT scan was performed according to ALARA (as low as reasonable achievable). COMPARISON: 02/15/2023 06:24:29 MOLD HOISTER. FINDINGS: Mild dilatation of pulmonary trunk ,bilateral main pulmonary artery up to subsegmental level with mild tortuosity - suggest possibility of pulmonary arterial hypertension. Diffuse ground-glass haze with multiple area of air trapping are noted involving both lungs giving mosaic attenuation. Adequate contrast bolus without evidence of pulmonary embolism. The central airways are patent. The lungs are clear. No pleural effusion. The heart, aorta, and pulmonary arteries are of normal size and configuration. There are no appreciable coronary artery and aortic atherosclerotic calcifications. No pericardial effusion is identified. The thyroid is unremarkable. No mediastinal, hilar, or axillary lymphadenopathy is noted. No suspicious lytic or sclerotic osseous lesions are identified. IMPRESSION: 1. Mild dilatation of pulmonary trunk ,bilateral main pulmonary artery up to subsegmental level with mild tortuosity - suggest possibility of pulmonary arterial hypertension -new finding. 2. Diffuse ground-glass haze with multiple area of air trapping are noted involving both lungs giving mosaic attenuation-new finding. 3. No evidence of pulmonary embolism. Electronically signed by Frank Sullivan 01-24-2024 03:[address] 01/24/24 01:47 EXAM: CT head/brain w con CLINICAL HISTORY: HEADACHE, 118 ML OPTIRAY 320 TECHNIQUE: Multiple axial images are obtained from the skull base to the vertex with contrast. CT scan was performed according to ALARA (as low as reasonable achievable). COMPARISON: None. FINDINGS: There is cerebral atrophy. No evidence of space occupying lesion, hemorrhage, edema, mass effect, midline shift, extra axial collection, or hydrocephalus is noted. Basal cisterns are symmetric and normal in size and configuration. There are scattered periventricular hypodensities as can be seen with chronic microvascular ischemic changes. The nayak-white matter differentiation is preserved. Visualized paranasal sinuses and mastoid air cells are well aerated. Orbital contents are within normal limits. Bony structures are intact. IMPRESSION: 1. No evidence of acute intracranial abnormality is demonstrated. 2. Chronic microvascular ischemic changes. 3. Cerebral atrophy. Electronically signed by Frank Sullivan 01-24-2024 03:17 AM Code Status & VTE Plan Code Status Full code VTE Prophylaxis Plan VTE Prophylaxis will be ordered: Yes PG Care Time/CCT Total # of Minutes Spent Total Time Spent with Patient: Total time spent is greater than 50% in coordination of care (as documented) at patient's floor/unit and/or counseling patient: Coding Level of Care Code 77473 INT INP/OBS CARE 3/75MIN Diagnoses Palpitations R00.2 Chest pain R07.9 Chest pain type: unspecified Apical variant hypertrophic cardiomyopathy I42.2 PVC (premature ventricular contraction) I49.3 CLL (chronic lymphocytic leukemia) C91.10 Acute kidney injury superimposed on CKD N17.9; N18.9 Class 2 severe obesity due to excess calories with serious comorbidity and body mass index (BMI) of 38.0 to 38.9 in adult E66.812; E66.01; Z68.38 Obesity type: due to excess calories Obesity classification: adult class 2 (BMI 35 - 39.9) Serious obesity comorbidity presence: with serious comorbidity Body mass index: BMI 38.0-38.9 Impaired fasting glucose R73.01 NSVT (nonsustained ventricular tachycardia) I47.29 Obstructive sleep apnea G47.33 (2) Chest pain Chest pain type: unspecified Qualified Code(s): R07.9 - Chest pain, unspecified (7) Obesity Obesity type: due to excess calories Obesity classification: adult class 2 (BMI 35 - 39.9) Serious obesity comorbidity presence: with serious comorbidity Body mass index: BMI 38.0-38.9 Qualified Code(s): E66.812 - Obesity, class 2; E66.01 - Morbid (severe) obesity due to excess calories; Z68.38 - Body mass index [BMI] 38.0-38.9, adult
[2024-01-24 05:21] LABS: Thyroid Stimulating Hormone 2.693 uIu/ml (0.300-4.500)
[2024-01-24] MEDS ORDERED: traZODone HCL 50 MG TAB PO PRN (06:41)
[2024-01-24] MEDS: ROSUVASTATIN CALCIUM 10 MG TAB PO SCH (08:25)
[2024-01-24] MEDS: METOPROLOL TARTRATE 50 MG TAB PO SCH ×2 (08:25→20:29)
[2024-01-24] MEDS: LEVOTHYROXINE SODIUM 125 MCG TABLET PO SCH (08:25)
[2024-01-24] MEDS: allopurinoL 100 MG TAB PO SCH (08:25)
[2024-01-24] MEDS: PANTOprazole 40 MG TAB PO SCH (08:25)
[2024-01-24] MEDS: SODIUM CHLORIDE 0.9% 1,000 ML IV SCH (08:26)
[2024-01-24] MEDS: ZANUBRUTINIB 80 MG CAP PO SCH (08:26)
--- NOTE | 2024-01-24 08:56 | Electrocardiogram Report ---
Test Reason : Blood Pressure : */* mmHG Vent. Rate : 96 BPM Atrial Rate : 96 BPM P-R Int : 202 ms QRS Dur : 94 ms QT Int : 358 ms P-R-T Axes : 66 -5 127 degrees QTcB Int : 452 ms Sinus rhythm with occasional Premature ventricular complexes Persistent T-wave inversion in Anterolateral leads Abnormal ECG When compared with ECG of 02-Jan-2024 16:13, Premature ventricular complexes are now Present MT interval has decreased T-wave inversion in Anterolateral leads less pronounced Confirmed by Riky Baca ([id number]) on 01/24/2024 8:55:41 AM Referred By: REFERRED SELF Confirmed By: Riky Baca
--- NOTE | 2024-01-24 09:21 | Cardiology Consultation ---
Date of Consultation January 24, 2024 Assessment & Plan (1) Palpitations: (2) Frequent PVCs: (3) Apical variant hypertrophic cardiomyopathy: (4) Hypertension: Plan Mr. De Leon is a 68 year old male with a history of CAD, Hypertension, Hypercholesterolemia, Prediabetes, CLL, GERD, JESSICA, Hypothyroidism, Palpitations, Symptomatic PACs/PVCs, NSVT, and an Apical Variant Hypertrophic Cardiomyopathy who was admitted in the ornamenter hand hours today after having Palpitations which awakened him from sleep. I saw him for his palpitations on 09/10/2019 when he had recorded these on his jslyhl mobile jeffery. It appeared as though he was having PVCs, PACs, and both with couplets which was driving down his effective heart rate between 30-39 bpm due to the pulse deficit associated with ectopic beats. Therefore, I ordered a 72 hour Holter monitor to better quantify his ectopy and to assess for any other arrhythmias. Patient had a 72 hour Holter Monitor 09/10/23 through 09/12/23 which showed sinus rhythm with normal heart rate variation, PVC burden was 5% of all recorded beats and his PVC's were present as singlets, couplets, 1 triplet, and an 11 beat run of NSVT. Patient had previously met with Dr. Raphael on 08/14/2023 at which time his Nebivolol was increased from 5 mg daily to 10 mg daily. Nebivolol was subsequently increased to 20 mg daily and when I saw him in follow-up he stated that his ectopic beats were at least 80% better at that point although he still notices some premature beats. I then saw the patient on 01/02/24 when he presented acutely complaining of increased palpitations, more frequent PVCs. At that time patient was going through a stressful time. He has chronic lymphocytic leukemia, and on a recent CT scan he had marked enlargement of his lymph nodes so he was anticipating starting chemotherapy again the following week through [facility]. He had been documenting his PVCs on his smart phone and brought those rhythm strips to that visit. He was having frequent PVCs, sometimes in a quadrigeminal pattern, sometimes in a trigeminal pattern, and occasional ventricular couplets. At this visit, we added Diltiazem CD 120 mg daily to his regimen. Unfortunately, adding Diltiazem did not have much of an impact on his palpitations. I ran into him in the parking lot earlier this week and he mentioned that Diltiazem was not helping his palpitations, we discussed the possibility of having an ablation, which he is in favor of. Patient did start his chemotherapy (Brukinsa) about a week ago and seems to be tolerating it. Today, in the ornamenter hand hours was awakened by severe palpitations, stating that his heart was pounding but it was not a fast rhythm. Patient demonstrated frequent PVCs on the front desk monitor in the ER, and also in the PCU when he initially came in, however, his PVC burden has significantly declined overnight and so far today. His Nebivolol and Diltiazem are currently on hold, but he is receiving Lopressor 50 mg b.i.d. and that may explain why his PVC burden as declined. We reviewed his EKG which is chronically abnormal. I have reassured him that his high sensitivity troponin I level is normal at 16.8 pg/mL, potassium normal at 4.8 mmol/L, his hypomagnesemia has been corrected, current magnesium level is 1.9 mg/dL, and his TSH is normal at 2.693 uIu/mL. His CBC with diff is abnormal and consistent with CLL. We also reviewed his telemetry monitoring and how his PVC burden has significantly diminished overnight and so far today. Recommend the followin. Continue Lopressor 50 mg b.i.d. 2. Resume Diltiazem CD 120 mg daily if blood pressure allows. 3. Again we discussed a PVC ablation which the patient is in favor of. I will make a referral to [facility]'s EP physicians. 4. Continue Rosuvastatin 10 mg daily. 5. Remain off of Nebivolol. 6. Continue all other usual outpatient medications as directed with the exception of Brukinsa, which he will discuss with his oncologist. Provided the patient's PVC burden remains low, he is stable for discharge to home later today. Thank you for asking us to see this patient in consultation. History of Present Illness Attending Physician: Amarjit Ayala MD History of Present Illness Mr. De Leon is a 68 year old male with a history of CAD, Hypertension, Hypercholesterolemia, Prediabetes, CLL, GERD, JESSICA, Hypothyroidism, Palpitations, Symptomatic PACs/PVCs, NSVT, and an Apical Variant Hypertrophic Cardiomyopathy who was admitted in the ornamenter hand hours today after having Palpitations w darioranulfo awakened him from sleep. I saw him for his palpitations on 09/10/2019 when he had recorded these on his jslyhl mobile jeffery. It appeared as though he was having PVCs, PACs, and both with couplets which was driving down his effective heart rate between 30-39 bpm due to the pulse deficit associated with ectopic beats. Therefore, I ordered a 72 hour Holter monitor to better quantify his ectopy and to assess for any other arrhythmias. 72 HOUR HOLTER MONITOR 09/10/23 through 09/12/23: -- Patient monitor for 2 days and 23 hours. -- Underlying rhythm is normal sinus rhythm. -- Average HR 64 bpm. -- Minimum HR 45 bpm. -- Maximum HR 153 bpm. -- PAC burden is 0.04% of all recorded beats. PACs were predominantly singlets, and occasionally or in a bigeminal pattern. -- PVC burden 5% of all recorded beats. -- PVC's were present as singlets, couplets, 1 triplet, and an 11 beat run of NSVT. Patient had previously met with Dr. Raphael on 08/14/2023 at which time his Nebivolol was increased from 5 mg daily to 10 mg daily. Nebivolol was subsequently increased to 20 mg daily and when I saw him in follow-up he stated that his ectopic beats were at least 80% better at that point although he still notices some premature beats. I then saw the patient on 01/02/24 when he presented acutely complaining of increased palpitations, more frequent PVCs. At that time patient was going through a stressful time. He has chronic lymphocytic leukemia, and on a recent CT scan he had marked enlargement of his lymph nodes so he was anticipating starting chemotherapy again the following week through [facility]. He had been documenting his PVCs on his smart phone and brought those rhythm strips to that visit. He was having frequent PVCs, sometimes in a quadrigeminal pattern, sometimes in a trigeminal pattern, and occasional ventricular couplets. At this visit, we added Diltiazem CD 120 mg daily to his regimen. Unfortunately, adding Diltiazem did not have much of an impact on his palpitations. I ran into him in the parking lot earlier this week and he mentioned that Diltiazem was not helping his palpitations, we discussed the possibility of having an ablation, which he is in favor of. Patient did start his chemotherapy (Brukinsa) about a week ago and seems to be tolerating it. Today, in the ornamenter hand hours was awakened by severe palpitations, stating that his heart was pounding but it was not a fast rhythm. Patient demonstrated frequent PVCs on the front desk monitor in the ER, and also in the PCU when he initially came in, however, his PVC burden has significantly declined overnight and so far today. His Nebivolol and Diltiazem are currently on hold, but he is receiving Lopressor 50 mg b.i.d. and that may explain why his PVC burden as declined. He is compliant with his medications and has not had any adverse side effects. Allergies Allergy/AdvReac Type Severity Reaction Status Date / Time Penicillins Allergy Unknown Unknown Verified 01/22/24 07:43 meloxicam Allergy Rash, Verified 01/22/24 07:43 entire body Home Medications Medication Instructions Recorded Confirmed Type levothyroxine 125 mcg tablet 125 mcg PO DAILY #90 tabs 06/03/23 01/24/24 Rx omeprazole 20 mg capsule,delayed 20 mg PO DAILY #90 caps 06/20/23 01/24/24 Rx release ergocalciferol (vitamin D2) 1,250 50,000 unit PO WK 08/13/23 01/24/24 History mcg (50,000 unit) capsule trazodone 50 mg tablet 50 mg PO HS PRN insomnia 08/13/23 01/24/24 History rosuvastatin 10 mg tablet 10 mg PO DAILY #90 tabs 09/20/23 01/24/24 Rx nebivolol 10 mg tablet 20 mg (2 x 10 mg) PO DAILY #180 10/15/23 01/24/24 Rx tabs semaglutide (weight loss) 1 mg/0.5 1 mg (0.5 mL) subcut Q7D #2 mL 11/13/23 01/24/24 Rx mL subcutaneous pen injector diltiazem HCl 120 mg 120 mg PO DAILY #90 caps 01/02/24 01/24/24 Rx capsule,extended release 24 hr allopurinol 100 mg tablet 100 mg PO DAILY 01/22/24 01/24/24 History zanubrutinib 80 mg capsule 80 mg PO BID 01/22/24 01/24/24 History (Brukinsa) tadalafil 5 mg tablet 5 mg PO UD 01/24/24 01/24/24 History Patient History Medical History NSVT (nonsustained ventricular tachycardia) PAC (premature atrial contraction) Pre-diabetes Coronary artery disease GERD (gastroesophageal reflux disease) Hypercholesteremia Hypothyroidism Surgical History History of umbilical hernia repair History of rhinoplasty History of colonoscopy (03/11/17) normal, recheck in 10 years Family History Brother History of kidney cancer Thrombocytopenia Father Prostate cancer Mother Leukemia Denies family history of Ovarian cancer Myocardial infarction Breast cancer Colorectal cancer Social History Smoking Status: Former smoker Tobacco Type: Cigarettes Age Started Using Tobacco: 13; Age Quit Using Tobacco: 43; packs per day: 1; Second Hand Exposure: No; Do You Dip or Chew Tobacco: No; Hx Alcohol Use: No Hx Substance Use: No Preferred Language: Pashto Communication Ability: Effective Visual Impairment: No Limitations Hearing Ability: Normal [employer] Work Supervisor Required: No Beliefs That Will Affect Care: None marital status: Current Living Situation: Spouse current occupational status: retired Feels Safe at Home: Yes Childhood Exposure to Second-Hand Smoke: No Diet: Weight Watchers caffeine: Yes (2 cups in AM) during the past year weight has: remained stable Dental Care, Regularly: Yes Physical Activity Frequency: 3-4 Times per Week Physical Activity Frequency Comment: swimming, 60mins Seatbelt Use: always Sunscreen Use: No Assistive Devices: CPAP and Glasses Review of Systems Review of Systems: -- As per HPI. Physical Exam Physical Exam: Pulse rate 74 and regular. Blood pressure is 113/64. GENERAL: Patient in no acute distress. HEENT: Head is atraumatic, normocephalic. EOM's intact. Facies symmetric. No perioral cyanosis. NECK: No JVD. JVP is not elevated. Carotid upstrokes are + 2 bilaterally without bruits. CHEST/LUNGS: Clear to auscultation throughout all lung henson. No wheezes, rales, or crackles. CVS: S1 and S2 are regular with occasional ectopy. No murmurs, gallops, or rubs. PMI is nonpalpable. No lifts, heaves, or thrills. No abdominal aortic or renal bruits. ABDOMINAL EXAM: Bowel sounds are present. EXTREMITIES: No clubbing or cyanosis. No edema. Intact radial pulses bilaterally. NEUROLOGIC EXAM: Patient is awake, alert, and oriented. Pleasant and cooperative. Answers questions appropriately. Speech is clear. SECURITY SERGEANT: -- Sinus rhythm in the 70's to 80's. -- PVC burden significantly decreased th roughout his hospital stay. EKG 01/24/24: Sinus rhythm with occasional Premature ventricular complexes Persistent T-wave inversion in Anterolateral leads Abnormal EKG When compared with EKG of 02-Jan-2024 16:13, Premature ventricular complexes are now Present W[place] interval has decreased T-wave inversion in Anterolateral leads less pronounced Confirmed by Riky Baca ([id number]) on 01/24/2024 8:55:41 AM Results & Data Vital Signs (Past 12 Hours) Vital Signs Temp Pulse Pulse Resp BP BP Pulse Ox 01/24/24 07:37 36.7 C 73 20 113/64 97 01/24/24 06:42 36.3 C L 18 127/70 95 01/24/24 06:07 36.6 C 01/24/24 06:00 74 17 133/62 93 01/24/24 05:54 74 01/24/24 05:30 75 17 120/53 L 94 01/24/24 05:00 79 16 132/52 L 95 01/24/24 04:30 84 20 124/64 96 01/24/24 04:03 85 20 144/69 H 95 01/24/24 03:30 89 21 120/65 93 01/24/24 03:03 89 18 122/66 95 01/24/24 02:05 01/24/24 02:03 93 H 18 96 01/24/24 02:01 96 01/24/24 02:00 94 H 17 140/66 95 01/24/24 01:55 96 H 01/24/24 01:51 96 H 19 117/85 95 01/24/24 01:40 37 C 97 H 17 141/70 H 95 O2 Del Method 01/24/24 07:37 Room Air 01/24/24 06:42 Room Air 01/24/24 06:07 01/24/24 06:00 Room Air 01/24/24 05:54 01/24/24 05:30 Room Air 01/24/24 05:00 Room Air 01/24/24 04:30 Room Air 01/24/24 04:03 Room Air 01/24/24 03:30 Room Air 01/24/24 03:03 Room Air 01/24/24 02:05 Room Air 01/24/24 02:03 Room Air 01/24/24 02:01 Room Air 01/24/24 02:00 Room Air 01/24/24 01:55 01/24/24 01:51 Room Air 01/24/24 01:40 Room Air Laboratory Results Laboratory Results - last 24 hr 01/24/24 01/24/24 01/24/24 01:53 01:55 02:36 WBC 137.47 H* RBC 4.71 Hgb 12.6 L POC Hgb 13.9 L Hct 41.8 L POC Hct 41 L MCV 88.7 MCH 26.8 MCHC 30.1 L RDW Std Deviation 44.0 RDW Coeff of Doe 13.9 Plt Count 165 MPV 11.5 Immature Gran % (Auto) 0.2 Neut % (Auto) 5.3 Lymph % (Auto) 93.9 Ferry % (Auto) 0.5 Eos % (Auto) 0.0 Baso % (Auto) 0.1 Neut # (Auto) 7.30 H Lymph # (Auto) 129.02 H Ferry # (Auto) 0.73 H Eos # (Auto) 0.03 Baso # (Auto) 0.11 Immature Gran # (Auto) 0.28 H Smudge Cells Present Polychromasia 1+ PT 10.4 INR 1.0 APTT 28 PTT Ratio 1.0 POC Sodium 139 Sodium 137 POC Potassium 4.3 Potassium 4.8 POC Chloride 105 Chloride 107 Carbon Dioxide 25 POC Total CO2 21 L Anion Gap 5 POC Anion Gap 18.0 POC BUN 11 BUN 12 Creatinine 1.31 POC Creatinine 1.4 H Est Cr Clr Drug Dosing 64.2 eGFR 59.29 BUN/Creatinine Ratio 9.2 L Glucose 122 H POC Glucose (other) 122 H Lactate Calcium 8.4 L POC Ioniz Calcium Son 1.14 Magnesium 1.9 Troponin I High Sens 16.8 Lipase 47 TSH 2.693 Free T4 Free T3 SARS-CoV-2 (PCR) NEGATIVE Influenza Type A (PCR) Negative Influenza Type B (PCR) Negative RSV (RT-PCR) Negative 01/24/24 01/24/24 02:41 09:40 WBC RBC Hgb POC Hgb Hct POC Hct MCV MCH MCHC RDW Std Deviation RDW Coeff of Doe Plt Count MPV Immature Gran % (Auto) Neut % (Auto) Lymph % (Auto) Ferry % (Auto) Eos % (Auto) Baso % (Auto) Neut # (Auto) Lymph # (Auto) Ferry # (Auto) Eos # (Auto) Baso # (Auto) Immature Gran # (Auto) Smudge Cells Polychromasia PT INR APTT PTT Ratio POC Sodium Sodium POC Potassium Potassium POC Chloride Chloride Carbon Dioxide POC Total CO2 Anion Gap POC Anion Gap POC BUN BUN Creatinine POC Creatinine Est Cr Clr Drug Dosing eGFR BUN/Creatinine Ratio Glucose POC Glucose (other) Lactate 1.1 Calcium POC Ioniz Calcium Son Magnesium Troponin I High Sens Lipase TSH Free T4 Pending Free T3 Pending SARS-CoV-2 (PCR) Influenza Type A (PCR) Influenza Type B (PCR) RSV (RT-PCR) Diagnostic Findings CTA CHEST 01/24/24: 1. Mild dilatation of pulmonary trunk ,bilateral main pulmonary artery up to subsegmental level with mild tortuosity - suggest possibility of pulmonary arterial hypertension -new finding. 2. Diffuse ground-glass haze with multiple area of air trapping are noted involving both lungs giving mosaic attenuation-new finding. 3. No evidence of pulmonary embolism. Medications Administered Medication List Allopurinol (Allopurinol 100 Mg Tab) 100 mg PO DAILY [facility] Stop: 02/23/24 08:59 Last Admin: 01/24/24 08:25 Dose: 100 mg Documented By: RUPINDER Sodium Chloride (Nss) 1,000 mls @ 80 mls/hr IV .[id number] [facility] Stop: 01/25/24 08:14 Last Admin: 01/24/24 08:26 Dose: 80 mls/hr Documented By: RUPINDER Levothyroxine Sodium (Levothyroxine Sodium 125 Mcg Tablet) 125 mcg PO DAILYBB [facility] Stop: 02/23/24 06:59 Last Admin: 01/24/24 08:25 Dose: 125 mcg Documented By: RUPINDER Pantoprazole Sodium (Pantoprazole 40 Mg Tab) 40 mg PO DAILY [facility]; Protocol Stop: 02/23/24 08:59 Last Admin: 01/24/24 08:25 Dose: 40 mg Documented By: RUPINDER Rosuvastatin Calcium (Rosuvastatin Calcium 10 Mg Tab) 10 mg PO DAILY [facility] Stop: 02/23/24 08:59 Last Admin: 01/24/24 08:25 Dose: 10 mg Documented By: RUPINDER Discontinued Medications Magnesium Sulfate/Dextrose (Magnesium Sulfate / D5w) 1 gm in 100 mls @ 50 mls/hr IV ONE STA Stop: 01/24/24 06:43 Last Admin: 01/24/24 04:53 Dose: 50 mls/hr Documented By: ADÁN Ioversol (Optiray 320 125ml) 125 ml IV ONCE ONE Stop: 01/24/24 02:30 Last Admin: 01/24/24 02:31 Dose: 118 ml Documented By: HAN Metoprolol Tartrate (Metoprolol Tartrate 50 Mg Tab) 50 mg PO BID [facility] Stop: 02/23/24 08:59 Last Admin: 01/24/24 08:25 Dose: 50 mg Documented By: RUPINDER Zanubrutinib (Zanubrutinib 80 Mg Cap) 80 mg PO BID [facility] Stop: 02/23/24 08:59 Last Admin: 01/24/24 08:26 Dose: 80 mg Documented By: RUPINDER PG Care Time/CCT Total # of Minutes Spent Total Time Spent with Patient: Total time spent is greater than 50% in coordination of care (as documented) at patient's floor/unit and/or counseling patient:48 Coding [place] [address] INT INP/OBS CARE 2/55MIN Patient Type Established History Comprehensive Exam Comprehensive Medical Decision Making Moderate Complexity Diagnoses Palpitations R00.2 Frequent PVCs I49.3 Apical variant hypertrophic cardiomyopathy I42.2 Primary hypertension I10 Hypertension type: primary hypertension Time Spent (min) 58 (4) Hypertension Hypertension type: primary hypertension Qualified Code(s): I10 - Essential (primary) hypertension
[2024-01-24] MEDS: dilTIAZem HCL 120 MG CAPCR PO SCH (10:17)
--- NOTE | 2024-01-24 11:57 | Hospitalist Progress Note ---
Date of Service January 24, 2024 Assessment & Plan (1) Palpitations: Plan: Resolved. Continue current medical management. Telemetry. Cardiology consultation pending (2) Chest pain: Plan: No evidence of acute coronary syndrome. Telemetry. Cardiology consultation pending (3) CLL (chronic lymphocytic leukemia): Plan: White blood cell count is markedly elevated. Brukinsa is currently on hold. Serial labs. Outpatient oncology follow-up (4) Acute kidney injury superimposed on CKD: Plan: IV fluids. Monitor intake and output. Serial labs (5) NSVT (nonsustained ventricular tachycardia): Plan: By history. Continue nebivolol. Telemetry Plan Hopeful discharge to home tomorrow, January 24 Admission and Anticipated Discharge Date Admission Date: January 24, 2024 Subjective Alert and oriented. No distress. Creatinine minimally elevated on admission which should normalize with IV fluids. No need for pulmonary medicine consultation at this time. He is now on IV fluids. It has been recommended that his Brukinsa medication be held temporarily. Hopefully he can go home tomorrow, January 24 Review of Systems 2 Review of Systems: Constitutionalno fever or chills ENTno blurred vision, no double vision, no epistaxis, no sore throat Respiratoryno cough, no wheezing, no shortness of breath Cardiacno palpitations, no chest pain, no syncope Kelly nausea, vomiting, diarrhea, melena, hematochezia GUno urinary retention, no urinary incontinence, no dysuria, no hematuria Musculoskeletalno joint pain, no muscle tenderness Skinno bruising, no rashes, no pruritus Neurono isolated weakness, no paresthesia, no weakness Psychno depression, no anxiety Physical Exam 2 Physical Exam: General-alert and oriented x3, no fever, no chills HEENT-head atraumatic and normocephalic, pupils equal and reactive to light, extraocular muscles intact Neck-no lymphadenopathy or thyromegaly, trachea midline Chest-clear to auscultation. No rales, wheezing or rhonchi Cardiac-regular rate and rhythm, normal S1 and S2 Abdomen-normal bowel sounds, no hepatosplenomegaly Extremities-no cyanosis, clubbing, or edema Neuro-cranial nerves II through XII intact, motor and sensory function within normal limits, strength symmetrical, no focal deficits Psych-normal affect, normal mood Results & Data Results & Data Vital Signs (Past 12 Hours) Vital Signs Temp Pulse Pulse Resp BP BP BP 01/24/24 10:51 36.9 C 71 18 127/74 01/24/24 07:37 36.7 C 73 20 113/64 01/24/24 06:42 36.3 C L 18 127/70 01/24/24 06:07 36.6 C 01/24/24 06:00 74 17 133/62 01/24/24 05:54 74 01/24/24 05:30 75 17 120/53 L 01/24/24 05:00 79 16 132/52 L 01/24/24 04:30 84 20 124/64 01/24/24 04:03 85 20 144/69 H 01/24/24 03:30 89 21 120/65 01/24/24 03:03 89 18 122/66 01/24/24 02:05 01/24/24 02:03 93 H 18 01/24/24 02:01 01/24/24 02:00 94 H 17 140/66 01/24/24 01:55 96 H 01/24/24 01:51 96 H 19 117/85 01/24/24 01:40 37 C 97 H 17 141/70 H Pulse Ox O2 Del Method 01/24/24 10:51 96 Room Air 01/24/24 07:37 97 Room Air 01/24/24 06:42 95 Room Air 01/24/24 06:07 01/24/24 06:00 93 Room Air 01/24/24 05:54 01/24/24 05:30 94 Room Air 01/24/24 05:00 95 Room Air 01/24/24 04:30 96 Room Air 01/24/24 04:03 95 Room Air 01/24/24 03:30 93 Room Air 01/24/24 03:03 95 Room Air 01/24/24 02:05 Room Air 01/24/24 02:03 96 Room Air 01/24/24 02:01 96 Room Air 01/24/24 02:00 95 Room Air 01/24/24 01:55 01/24/24 01:51 95 Room Air 01/24/24 01:40 95 Room Air Laboratory Results 01/24/24 01:53 01/24/24 01:53 PG Care Time/CCT Total # of Minutes Spent Total Time Spent with Patient: Total time spent is greater than 50% in coordination of care (as documented) at patient's floor/unit and/or counseling patient: Coding Level of Care Code 53909 SUB INP/OBS CARE 3/50MIN Diagnoses Palpitations R00.2 Chest pain R07.9 Chest pain type: unspecified CLL (chronic lymphocytic leukemia) C91.10 Acute kidney injury superimposed on CKD N17.9; N18.9 NSVT (nonsustained ventricular tachycardia) I47.29 (2) Chest pain Chest pain type: unspecified Qualified Code(s): R07.9 - Chest pain, unspecified
[2024-01-24] MEDS: ACETAMINOPHEN 325 MG TAB PO PRN (17:28)
[2024-01-24 22:55] LABS: A calco-baum cmplx NotReported Not Detected (NotDetected); Bact fragilis Not Reported Not Detected (NotDetected); Blood Culture Id Panel See PCR Comment (NotDetected); C auris Not Reported Not Detected (NotDetected); Calbicans Not Reported Not Detected (NotDetected); Candida glabrata Not Reported Not Detected (NotDetected); Candida krusei Not Reported Not Detected (NotDetected); Cneoformans/gatti Not Reported Not Detected (NotDetected); Cparapsilosis Not Reported Not Detected (NotDetected); E cloacae compx Not Reported Not Detected (NotDetected); Efaecalis Not Reported Not Detected (NotDetected); Efaecium Not Reported Not Detected (NotDetected); Enterobacterales Not Reported Not Detected (NotDetected); Escherichia coli Not Reported Not Detected (NotDetected); H influenzae Not Reported Not Detected (NotDetected); K aerogenes Not Reported Not Detected (NotDetected); Koxytoca Not Reported Not Detected (NotDetected); Kpneumoniae grp Not Reported Not Detected (NotDetected); Lmonocyt Not Reported Not Detected (NotDetected); N meningitidis Not Reported Not Detected (NotDetected); P aeruginosa Not Reported Not Detected (NotDetected); Proteus spp Not Reported Not Detected (NotDetected); Salmonella spp Not Reported Not Detected (NotDetected); Staph lugdunensis Not Reported Not Detected (NotDetected); Staph spp. Not Reported DETECTED (NotDetected); Staphaureus Not Reported Not Detected (NotDetected); Staphepi Not Reported DETECTED (NotDetected); Stenmaltophilia Not Reported Not Detected (NotDetected); Strep agal(GrpB) Not Reported Not Detected (NotDetected); Strep pneum Not Reported Not Detected (NotDetected); Strep pyog (GrpA) Not Reported Not Detected (NotDetected); Strep spp Not Reported Not Detected (NotDetected)
[2024-01-24 23:01] LABS: Staphylococcus epidermidis DETECTED (NotDetected); Staphylococcus spp. DETECTED (NotDetected); mecAC Resistant Gene DETECTED (NotDetected)
[2024-01-24] MEDS ORDERED: VANCOMYCIN CONSULT ACTIVE PRN (23:20)
[2024-01-24] MEDS ORDERED: VANCOMYCIN HCL 1,000 MG/270 ML BAG IV SCH (23:30)
[2024-01-25] MEDS: VANCOMYCIN HCL 2,250 MG in SODIUM CHLORIDE 0.9% 500 ML IV ONE (00:07)
[2024-01-25 06:49] LABS: Hematocrit (blood only) 39.6 % (42.0-52.0); Hemoglobin 11.7 g/dl (14.0-18.0); Mean Corpuscular Hemoglobin 26.6 pg (25.0-34.0); Mean Corpuscular Hgb Conc 29.5 g/dL (32.0-36.0); Mean Platelet Volume 11.5 fL (9.4-12.4); Platelet Count 134 K/uL (130-400); RDW Coefficient of Variation 14.1 % (11.5-14.5); RDW Standard Deviation 45.7 fL (36.4-46.3); White Blood Count 100.86 K/ul (4.8-10.8)
[2024-01-25 07:05] LABS: Potassium 4.9 mmol/L (3.5-5.1)
[2024-01-25 07:06] LABS: BUN Creatinine Ratio 10.9 (10-20); Calcium 8.2 mg/dl (8.6-10.3); Creatinine Clr Calc Pharmacy 81.6 ml/min
[2024-01-25 07:33] LABS: Basophils # (auto) 0.16 K/uL (0.00-0.20); Basophils % (auto) 0.2 %; Eosinophils % (auto) 0.1 %; Immature Granulocytes % (auto) 0.1 %; Lymphocytes # (auto) 97.07 K/uL (1.20-3.40); Lymphocytes % (auto) 96.2 %; Monocytes # (auto) 0.75 K/uL (0.11-0.59); Monocytes % (auto) 0.7 %; Neutrophils # (auto) 2.68 K/uL (1.40-6.50); Neutrophils % (auto) 2.7 %; Smudge Cells Present
[2024-01-25 07:53] VITALS: RESP 18; TEMP 97.7; O2SAT 99
[2024-01-25] MEDS: VANCOMYCIN HCL 1,000 MG/270 ML BAG IV SCH (08:32)
--- NOTE | 2024-01-25 10:48 | Discharge Summary ---
Discharge Summary Date of Service January 25, 2024 Principal Dx & Hospital Course #1 = Principal Diagnosis (1) Palpitations: Resolved. Continue current medical management. Telemetry. (2) Chest pain: No evidence of acute coronary syndrome. Telemetry. Cardiology consultation pending (3) CLL (chronic lymphocytic leukemia): White blood cell count is markedly elevated. Brukinsa is currently on hold. Serial labs. Outpatient oncology follow-up (4) Acute kidney injury superimposed on CKD: Resolved with IV fluids. Monitor intake and output. Serial labs (5) NSVT (nonsustained ventricular tachycardia): By history. Continue nebivolol. Telemetry (6) Positive blood culture: 204 cultures positive for gram-positive cocci on admission. This probably represents a contaminant since he has no fever and no chills and does not look ill in any way. Also there is no source for the infection. He was started on vancomycin last night as a precaution which will be discontinued. Plan Home today, January 24. Julianne remains on hold Admission HPI Per Admitting Provider The patient is a 68-year-old male with past medical history including CLL now on Brukinsa, JESSICA, impaired fasting glucose, apical variant hypertrophic cardiomyopathy, hypertension, PVCs, PACs, history of 11 beat run of nonsustained V. tach, NAFLD, morbid obesity, vitamin B12 deficiency. The patient presents to the emergency department after being awoken by severe episode of palpitations as noted above. Discharge Exam General-alert and oriented x3, no fever, no chills HEENT-head atraumatic and normocephalic, pupils equal and reactive to light, extraocular muscles intact Neck-no lymphadenopathy or thyromegaly, trachea midline Chest-clear to auscultation. No rales, wheezing or rhonchi Cardiac-regular rate and rhythm, normal S1 and S2 Abdomen-normal bowel sounds, no hepatosplenomegaly Extremities-no cyanosis, clubbing, or edema Neuro-cranial nerves II through XII intact, motor and sensory function within normal limits, strength symmetrical, no focal deficits Psych-normal affect, normal mood Discharge Plan Discharge Items Patient Disposition: Home - Self-Care Reason For Visit: PALPITATIONS, CLL, PVC's Discharge Diagnosis: Palpitations, PVCs, mild acute on chronic kidney disease Activity: Resume your previous activity Non-emergency contact: Primary Care Provider and Government Employee Call non-emergency contact if: your symptoms worsen Follow-up/Referrals: Nayely Zaman MD [Primary Care Provider] - Diet: Regular and Heart Healthy Addtl Attending Provider Instructions: Brukinsa has been placed on hold. Other medications remain the same Pending Studies at Discharge: No Stand-Alone Forms: [facility], Smoking Cessation Medications and DC Order Prescriptions: Continued levothyroxine 125 mcg tablet 125 mcg PO DAILY Qty: 90 3RF omeprazole 20 mg capsule,delayed release(DR/EC) 20 mg PO DAILY Qty: 90 3RF rosuvastatin 10 mg tablet 10 mg PO DAILY Qty: 90 3RF nebivolol 10 mg tablet 20 mg PO DAILY Qty: 180 3RF allopurinol 100 mg tablet 100 mg PO DAILY diltiazem HCl 120 mg capsule,extended release 24hr 120 mg PO DAILY Qty: 90 3RF semaglutide (weight loss) 1 mg/0.5 mL pen injector 1 mg subcut Q7D Qty: 2 5RF trazodone 50 mg tablet 50 mg PO HS PRN (Reason: insomnia) Rx Instructions: TAKES ROUTINE ergocalciferol (vitamin D2) 1,250 mcg (50,000 unit) capsule 50,000 unit PO WK Rx Instructions: TAKE ONE CAPSULE BY MOUTH WEEKLY. Fri tadalafil 5 mg tablet 5 mg PO UD Discontinued Brukinsa 80 mg capsule 80 mg PO BID Discharge Orders: Discharge Order (Routine); Ordered 01/25/24 Ordered By: Amarjit Ayala Admission Data Admit Date/Time: 01/24/24 04:52 Attending Provider: Amarjit Ayala Admit Provider: Lee Power Primary Care Provider: Nayely Zaman Other Providers: Lee Power; Devante Jacobsen; Yoseph Morse Hospital Stay Data Consultations 01/24/24 03:22 ED Decision to Admit Stat 01/24/24 06:41 Consult Cardiology Routine Consult Hematology Routine Diagnostic Imagining Performed 01/24/24 01:47 CT angio chest PE protocol Stat CT head/brain w con Stat Pending Results Patient Have Any Pending Studies at Discharge: No Discharge Instructions Given to Patient (Per Discharging Provider) Brukinsa has been placed on hold. Other medications remain the same Total Time Total Time Spent Total Time Spent (In Minutes): 50 minutes Coding Level of Care Code 65285 INP/OBS DISCH >30 MIN Diagnoses Palpitations R00.2 Chest pain R07.9 Chest pain type: unspecified CLL (chronic lymphocytic leukemia) C91.10 Acute kidney injury superimposed on CKD N17.9; N18.9 NSVT (nonsustained ventricular tachycardia) I47.29 Positive blood culture R78.81
[2024-01-25 10:50] VITALS: BP 111/62; PULSE 64
--- OUTSIDE RECORDS SUMMARY | 2024-01-25 14:15 | External Medical Summary | Summary of Care ---
Author Name Unknown Organization [facility] Address [address] [place] [address] Phone [phone] Care Team Providers Care Earth Boring Machine Operator Name Role Phone Nayely Zaman MD Primary Care Provid er Reason for Visit * Reason Comments Appointment Encounter Details Date Type Department Care Team (Late st Contact Info) Description 01/22/2024 12:30 PM EST Office Visit Hematology/Oncology [facility] [place] [address] [facility] [place] [phone] Vel Sanders MD [address] [facility] [place] [address] CLL (chronic lymphocytic leukemia) ([facility])* Allergies Active Allergy Reactions Criticality Noted Date Comments Meloxicam 10/20/2020 Penicillins 07/26/2009 documented as of this encounter (statuses as of 01/22/2024) Medications SYNTHROID 125 MCG OR TABS 1 tab daily Active Nebivolol HCl 20 MG Oral Tablet 1 Tablet daily. 1 03/19/19 17 Active Vitamin D (Ergocalciferol) 1.25 MG (68606 UT) Oral Capsule Take 1 Capsule by mouth once a week. Active Triamcinolone Acetonide 0.1 % External Cream (Aristocort) apply to both outer ears twice daily for 7 days 15 g 05/02/19 22 Active Additional Information Patient not taking.Reported on 01/07/2024 Tadalafil 5 MG Oral Tablet (Cialis) Take 1 Tablet by mouth daily as needed for Erectile Dysfunction. Active Tadalafil 20 MG Oral Tablet (Cialis) Take 1 Tablet by mouth daily as needed for Erectile Dysfunction. Active traZODone HCl 50 MG Oral Tablet (Desyrel) Take 1 Tablet by mouth at bedtime. Active Omeprazole 20 MG Oral Tablet Delayed Release Disintegrating Take 20 Tablets by mouth daily. Active Topiramate 25 MG Oral Tablet (topAMAX) Take 1 Tablet by mouth in the morning and 1 Tablet before bedtime. Active Wegovy 1 MG/0.5ML Subcutaneous Solution Auto-injector once a week. Mondays12/16/19 24 Active dilTIAZem HCl 120 MG Oral Tablet Take 1 Tablet by mouth in the morning. Active Ondansetron HCl 8 MG Oral TabletIndications: CLL (chronic lymphocytic leukemia) (HCC) Take 1 Tablet by mouth every 8 hours as needed for Nausea. Take one tablet by mouth every 8 hours as needed for nausea 20 Tablet 2 01/07/20 24 Active Allopurinol 100 MG Oral Tablet (Zyloprim)Indicati ons:CLL (chronic lymphocytic leukemia) (HCC) Take 1 Tablet by mouth in the morning. Take one tablet by mouth daily. 30 Tablet 5 01/07/20 24 Active Zanubrutinib 80 MG Oral CapsuleIndications :CLL (chronic lymphocytic leukemia) (HCC) Take 80 mg by mouth in the morning and 80 mg before bedtime. 60 Capsule 5 01/08/2024 8:18 AM EST 01/08/20 24 Active documented as of this encounter (statuses as of 01/22/2024) Active Problems Problem Noted Date Diagnosed Date CLL (chronic lymphocytic leukemia) 01/01/2024 Other vitamin B12 deficiency anemias 04/16/2022 Chronic otitis externa 07/26/2009 Chronic mycotic otitis externa 07/26/2009 Other acute infections of external ear 0 Hypersomnia with sleep apnea 07/26/2009 Other diseases of nasal cavity and sinuses(478.1 9) Allergic rhinitis Hypertrophy of nasal turbinates documented as of this encounter (statuses as of 01/22/2024) Immunizations Name Administration Dates Next Due Seasonal Influenza, Quadrivalent, No Preserve, M dck 11/13/2018 documented as of this encounter Social History Tobacco Use Types Packs/Day Years Used Date Smoking Tobacco: Never Smokeless Tobacco: Never Alcohol Use Standard Drinks/Week Comments No 0 (1 standard drink = 0.6 oz pur e alcohol) Utilities Answer Date Recorded Do you have trouble paying y our heating, water, or electric bill? (Adult - for ages 18 years and over) Not on file 07/30/2023 Is your family able to pay t he heat, water, or electric bill? (Household - for ages 0-17 years) Not on file 07/30/2023 Does your family have access to good internet? (Household - for ages 0-17 years) Not on file 07/30/2023 Social Connections Answer Date Recorded How often do you feel lonely or isolated from those around you? (Adult - for ages 18 years and over) Not on file 07/30/2023 Sex and Gender Information Value Date Recorded Sex Assigned at Not on file Legal Sex Male 7:11 AM EST Gender Identity Not on file Sexual Orientation Not on file documented as of this encounter Last Filed Vital Signs Vital Sign Reading Time Taken Comments Blood Pressure 117/71 01/22/2024 12:16 PM EST Pulse 62 01/22/2024 12:16 PM EST Temperature 36.3 C (97.4 F) 01/22/2024 12:[address] Respiratory Rate - - Oxygen Saturation 93% 01/22/2024 12:16 PM EST Inhaled Oxygen Concentration - - Weight 119 kg (262 lb 6.4 oz) 01/22/2024 12:16 P M EST Height - - Body Mass Index 41.09 08/21/2023 8:33 AM EDT documented in this encounter Progress Notes * Vel Sanders MD - 01/22/2024 12:53 PM EST Images from the original note were not included. Outpatient Consult Note Data Source: Patient, Epic record. Data Source: Patient, Epic record. 01/22/2024 12:53 PM Sandeep [place] [id number] 68 year old Patient Encounter: [facility]ATOLOG[facility]Y [facility] Cancer Diagnosis: Chronic lymphocytic leukemia Current Treatment: Zanubrutinib Previous Treatment: None Oncologic History : 68-year-old male with history of hypercholesterolemia, hypothyroidism, atypical variant hypertrophic cardiomyopathy was referred to me with the recent diagnosis of chronic lymphocytic leukemia. On 2020 he had a routine CBC done which revealed leukocytosis with lymphocytosis with his WBCcount 17.8 with normal hemoglobin and platelet counts. Last CBC was done on 06/22/2020 in shows WBCcount of 11.3 hemoglobin 15.3 and platelet count 209. Differential revealed neutrophil count of 43.9% in the lymphocyte 46.8 with the absolute lymphocyte count of 5288. Creatinine all the electrolytes and LFTs were within normal limit. Flow cytometry was done and the result is consistent with monoclonal B-cell population with an immunophenotype typical of chronic lymphocytic leukemia/small lymphocytic lymphoma: Specimen Type: Peripheral Blood flow cytometry Diagnosis: Monoclonal B-cell population with an immunophenotype typical of chronic lymphocytic leukemia / small lymphocytic lymphoma (CLL/SLL). Comments: Flow cytometry shows a monotypic CD5-positive, [id number] B-cell population with an immunophenotype typical of CLL/SLL, comprising 76% of lymphoid cells, estimated as 4 K/uL absolute monoclonal B-cell count based on the CBC absolute lymphocyte count. Per the 2016 WHO criteria, in the absence of previously diagnosed disease or extramedullary disease, this is most consistent with a high-count monoclonal B lymphocytosis. CD38 is <30%, which in cases of CLL/SLL, is associated with a favorable prognosis. 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 IGVH STATUS BORDERLINE The observed mutation rate in this case is at the borderline which precludes definitive typing. Repeat IgVH was unmutated He also had episode of back pain and chest pain and had workup done including CT scan and bone scanwhich were negative. Abdominal ultrasound was done on 07/28/2020 and shows spleen size was 13.2 cm with no splenic masses of perisplenic fluid collection. He quit smoking about 30 years ago. He used to smoke 1 pack per day for 20 years. He is a recovering alcoholic and last drink was about 30 years ago. He is retired and used to work as a ER technicianat [employer] Family history significant for mother was diagnosed of leukemia. Father was diagnosed of prostate cancer. Interval History: He has started Burkinsa on 01/13/2024. Overall clinically he is doing well without any new symptomscomplain. Denies any fever, night sweats, chest pain, palpitation abdominal pain or distention, nausea, vomiting, fever, night sweats. Because of the interaction dose of diltiazem was decreased. He is following Cardiology for further management and planning for ablation. LABS/IMAGING: Results for orders placed or performed in visit on 01/20/24 COMPREHENSIVE METABOLIC PANEL Result Value Ref Range BUN 16 6 - 20 mg/dL CREATININE 1.5 (H) 0.6 - 1.2 mg/dL EGFR 52 (L) >=60 mL/min SODIUM 139 135 - 146 mmol/L POTASSIUM 4.7 3.5 - 5.1 mmol/L CHLORIDE 105 98 - 107 mmol/L CO2 24 22 - 32 mmol/L ANION GAP 10 7 - 15 mmol/L GLUCOSE 105 70 - 120 mg/dL Albumin 4.2 3.8 - 5.0 g/dL AST 17 10 - 50 U/L Alkaline Phosphatase 106 35 - 130 U/L Bilirubin, Total 0.3 <=1.2 mg/dL CALCIUM 9.0 8.4 - 10.2 mg/dL Protein 6.8 6.0 - 8.3 g/dL ALT <5 (L) 10 - 50 U/L CBC Result Value Ref Range WBC 141.86 (HH) 4.00 - 10.80 K/uL RBC 4.63 4.50 - 5.25 M/uL HGB 12.5 (L) 14.0 - 16.8 g/dL HCT 42.7 40.0 - 48.4 % MCV 92.2 82.0 - 99.5 fL MCH 27.0 27.0 - 34.0 pg MCHC 29.3 32.0 - 36.0 g/dL RDW 14.7 11.5 - 15.5 % PLT 155 140 - 400 K/uL MPV 11.1 6.6 - 11.1 fL DIFFERENTIAL, TECHNOLOGIST REVIEW Result Value Ref Range WBC 141.86 (HH) 4.00 - 10.80 K/uL Neutrophils % 3.0 (L) 40.0 - 75.0 % Lymphocytes % 96.5 (H) 18.0 - 42.0 % Monocytes % 0.5 (L) 1.0 - 11.0 % Absolute Neutrophils 4.26 1.80 - 7.70 K/uL Absolute Lymphocytes 136.89 (H) 1.00 - 4.80 K/uL Absolute Monocytes 0.71 0.00 - 1.10 K/uL nRBCs Reactive Lymphocytes Present (A) None Seen Smudge Cells Present (A) None Seen URIC ACID Result Value Ref Range Uric Acid 5.1 3.4 - 7.0 mg/dL Recent CBC done on 01/20/2024 which shows WBC count of 141.86, hemoglobin 12.5 and platelet count 155. Creatinine was 1.5 REVIEW OF SYSTEMS: General: No Fever, chills, night sweats, or weight loss. HEENT: No change in visual acuity, blurred or double vision. No epistaxis, facial pain, nasal discharge or change in hearing. Denies dysphagia, no muscosal ulceration, or sores noted. Cardiovascular: No chest pain, KHAN, or palpitations Respiratory: No shortness of breath, cough, hemoptysis, or pleuritic chest pain Gastrointestinal: No abdominal pain, nausea, vomiting, diarrhea, rectal pain or bleeding Genitourinary: Denies Hematuria or dysuria Psychiatric: No vegetative signs of depression Endocrine: No symptoms of hypothyroidism or hyperglycemia Hematologic: No bleeding or lymph nodes noted As mentioned above, all of the systems were reviewed in full and are unremarkable. Past Medical History: Diagnosis Date Allergic rhinitis 2006 Deviated nasal septum 2006 Hypertrophy of nasal turbinates 2006 NON ALLERGIC RHINITIS Other diseases of nasal cavity and sinuses(478.19) 2006 Current Outpatient Medications Medication Sig Dispense Refill SYNTHROID 125 MCG OR TABS 1 tab daily Nebivolol HCl 20 MG Oral Tablet 1 Tablet daily. 1 Vitamin D (Ergocalciferol) 1.25 MG (96984 UT) Oral Capsule Take 1 Capsule by mouth once a week. Triamcinolone Acetonide 0.1 % External Cream (Aristocort) apply to both outer ears twice daily for 7 days (Patient not taking: Reported on 01/07/2024) 15 g 0 Tadalafil 5 MG Oral Tablet (Cialis) Take 1 Tablet by mouth daily as needed for Erectile Dysfunction. Tadalafil 20 MG Oral Tablet (Cialis) Take 1 Tablet by mouth daily as needed for Erectile Dysfunction. traZODone HCl 50 MG Oral Tablet (Desyrel) Take 1 Tablet by mouth at bedtime. Omeprazole 20 MG Oral Tablet Delayed Release Disintegrating Take 20 Tablets by mouth daily. Topiramate 25 MG Oral Tablet (topAMAX) Take 1 Tablet by mouth in the morning and 1 Tablet before bedtime. (Patient not taking: Reported on 01/07/2024) Wegovy 1 MG/0.5ML Subcutaneous Solution Auto-injector once a week. Mondays dilTIAZem HCl 120 MG Oral Tablet Take 1 Tablet by mouth in the morning. Ondansetron HCl 8 MG Oral Tablet Take 1 Tablet by mouth every 8 hours as needed for Nausea. Take one tablet by mouth every 8 hours as needed for nausea 20 Tablet 2 Allopurinol 100 MG Oral Tablet (Zyloprim) Take 1 Tablet by mouth in the morning. Take one tablet bymouth daily. 30 Tablet 5 Zanubrutinib 80 MG Oral Capsule Take 80 mg by mouth in the morning and 80 mg before bedtime. 60 Capsule 5 No current facility-administered medications for this visit. Social History Tobacco Use Smoking status: Never Smokeless tobacco: Never Substance Use Topics Alcohol use: No Drug use: Not on file Review of patient's allergies indicates: Allergen Reactions Meloxicam Penicillins PHYSICAL EXAMINATION: General Appearance: Healthy appearing patient in no acute distress BP 117/71 (BP Site: Left Arm, BP Position: Sitting, BP Cuff Size: Large) | Pulse 62 | Temp 36.3 C(97.4 F) (Tympanic) | Wt 119 kg (262 lb 6.4 oz) | SpO2 93% | BMI 41.09 kg/m | BSA 2.37 m Vitals reviewed. HEENT: No oral or pharyngeal masses, ulceration or thrush noted, no sinus tenderness. Neck is supple with no thyromegaly or JVD noted. Lymph Nodes: Palpable lymph node in the submandibular area especially on the right side seems to bestable or smaller. Lungs/Thorax: Clear to auscultation, no accessory muscles of respiration being used. Heart: Regular rate and rhythm, normal S1, S2 Abdomen: Soft, nontender, bowel sounds present, no appreciable hepatosplenomegaly, no palpable masses Extremeties: Good pulses bilaterally, no peripheral edema. ASSESSMENT: 68-year-old male with history of hypercholesterolemia, hypothyroidism, atypical variant hypertrophic cardiomyopathy was referred to me with the recent diagnosis of chronic lymphocytic leukemia. Peripheral blood cytometry is consistent with diagnosis of CLL and FSH is also positive for deletion of 13q14 and normal results seen for the 6, 11, 11;14, 12, 13q34 and 17 probes. His history is also significant for cardiovascular disease and apical variant hypertrophic cardiomyopathy with PVCs and following Cardiology. He continues to complain neck discomfort and pain. He has no difficulty in swallowing or breathing.Physical examination is significant for the neck lymphadenopathy especially in the submandibular area. On the CT scan he has extensive lymphadenopathy in the neck, chest, abdomen and pelvis. He has started zanubrutinib on 01/13/2024 with overall good tolerance so far without any significant side effects. There is increase in the WBC count because of the zanubrutinib. At this point the best option is continue current treatment and monitor his blood counts. He will continue follow Cardiology for further management about his cardiac problem. Discussed with the patient and about the diagnosis reviewed all the available blood test result with them. Explained to them that the increase in the white cell count has because of the treatment. After detailed discussion they agreed to continue current treatment. PLAN: As above. Patient is scheduled to see Chani nurse practitioner on 02/12/2023. He will return clinic for follow-up to see me in 2 months with CBC and CMP. The patient voiced understanding of all of the above. All questions and concerns were addressed in an apparently satisfactory manner. Vel Sanders MD (This note was completed using the dictation program Fluency Direct. As such, there may be misspellings, word substitutions, or other variations that should not change the essence of the clinical content of this encounter note. If there is need for further clarification, please direct questions to me.) documented in this encounter Nursing Notes * Karlene Lizarraga, MED ASSIST - 01/22/2024 12:18 PM EST Patient identifed by name and birthdate Do you have any concerns about pain management for today's visit? Yes. Patient instructed to discuss pain concerns with provider during the visit today Living Will or Advance Directive for Health Care as noted on the problem list. [facility] is a way you can talk to your provider on line through e-mail. Would you like to sign up? I can activate it for you? ALREADY ACTIVE Filed Vitals: 01/22/24 1216 BP: 117/71 Pulse: 62 Temp: 36.3 C (97.4 F) TempSrc: Tympanic SpO2: 93% Weight: 119 kg (262 lb 6.4 oz) Patient was instructed to not get up on the exam table/exam chair until directed and assisted by their provider; patient is to remain seated in the chair/ wheelchair/ exam table/ exam chair for fall prevention and safety reasons. Patient is aware to have assistance to step down off exam table/exam chair with personnel. Patient voiced full comprehension of instructions. documented in this encounter Plan of Treatment Upcoming Encounters Date Type Department Care Team (Late st Contact Info) Description 02/03/2024 8:45 AM EST Immunization/Inject ion Hematology/Oncology [facility] [place] [address] [facility] [phone] Leticia, Chair 11 Hem Onc [address] [place] [address] 02/04/2024 9:00 AM EST Pharmacy Pharmacy Hematology Oncology [facility] [address] [place] [address] [facility] [place] Hem/Onc [address] [place] [address] 02/25/2024 8:30 AM EST Office Visit Otolaryngology [facility] [address] [facility] [place] [phone] Marlene Rojas PA-C [facility] [place] [phone] 03/04/2024 10:00 AM EST Office Visit Hematology/Oncology [facility] [address] [place] [phone] Chani Leong CRNP [address] [place] [address] 03/24/2024 3:00 PM EST Office Visit Hematology/Oncology [employer] [address] [facility] [place] [phone] Vel Sanders MD [address] [place] [address] Health Maintenance Due Date Last Done Comments COVID-19 Vaccine (#1) 02/23/1960 Pneumococcal Vaccine: 65+ Years (1 of 2 - PCV) 1961 Depression Screening 1967 Hepatitis C Screening 1973 DTap/Tdap Vaccines (1 - Tdap) 1974 Zoster Vaccines (1 of 2) 1974 Cologuard 02/23/2000 Colonoscopy 02/23/2000 Colorectal Cancer Screening 02/23/2000 Fecal Occult Blood Test 02/23/2000 Sigmoidoscopy 02/23/2000 TSH 07/09/2017 07/09/2016 Lipid Panel 07/09/2021 07/09/2016 Influenza Vaccine (FLU shot) (#1) 2023 11/13/2018 Diabetes Screening 01/19/2027 01/20/2024, 1 02/14/2023, 08/13/2023, Additional history exists HPV (Gardasil) Vaccine Aged Out No lo nger eligible based on patient's age to complete this topic Hepatitis B Vaccine Aged Out No longe r eligible based on patient's age to complete this topic MENINGOCOCCAL (MENACTRA/MENVEO) Aged Out No longer eligible based on patient's age to complete this topic documented as of this encounter Medical Devices Not on filedocumented as of this encounter Visit Diagnoses Diagnosis CLL (chronic lymphocytic leukemia) (HCC)- Primary Chronic lymphoid leukemia, without mention of having achieved remission documented in this encounter Care Teams Earth Boring Machine Operator Relationship Specialty Start Date End Date Nayely Zaman MD [address] [place] [address] [place] [address] PCP - General Internal Medicine 03/08/22 documented as of this encounter"
--- NOTE | 2024-01-25 17:30 | Electrocardiogram Report ---
Test Reason : Blood Pressure : */* mmHG Vent. Rate : 69 BPM Atrial Rate : 69 BPM P-R Int : 224 ms QRS Dur : 98 ms QT Int : 440 ms P-R-T Axes : 61 7 172 degrees QTcB Int : 471 ms Sinus rhythm with 1st degree A-V block Prolonged QT Abnormal ECG When compared with ECG of 24-Jan-2024 01:45, Premature ventricular complexes are no longer Present T wave inversion now evident in Inferior leads T wave inversion more evident in Lateral leads Confirmed by Austyn Snider ([id number]) on 01/25/2024 5:29:49 PM Referred By: REFERRED SELF Confirmed By: Austyn Snider
--- OUTSIDE RECORDS SUMMARY | 2024-01-26 09:55 | External Medical Summary | Summary of Care ---
Author Name Unknown Organization [facility] Address [address] [place] [address] Phone [phone] Care Team Providers Care Audiometrist Name Role Phone Nayely Zaman MD Primary Care Provid er Reason for Visit * Reason Onset Date Comments Advice 01/24/2024 Encounter Details Date Type Department Care Team (Late st Contact Info) Description 01/24/2024 Telephone Hematology/Oncology Jaxon Kelly [place] 200 [facility] [place] [phone] [facility]soeph [facility] [address] Advice Allergies Active Allergy Reactions Criticality Noted Date Comments Meloxicam 10/20/2020 Penicillins 07/26/2009 documented as of this encounter (statuses as of 01/24/2024) Medications SYNTHROID 125 MCG OR TABS 1 tab daily Active Nebivolol HCl 20 MG Oral Tablet 1 Tablet daily. 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 * Telephone Encounter - Yoseph Morse MD - 01/24/2024 7:52 AM EST He called answering service around 1:20 a.m., he says that he started having palpitation, lightheadedness, he is on his way to the [facility] ER at that time. Recently he was started on Zanubrutinib (Brukinsa) on 01/13/2024 for CLL diagnosis. Reviewed [facility] records, WBC count is around 137 1000, Hemoglobin and hematocrit - 12.6/41.8, Platelet count [id number], -EKG showed sinus rhythm with premature ventricular complexes, now admitted in the hospital, they discussed the case with Cardiology. With a history of underlying hypertrophic cardiomyopathy and with the current cardiac arrhythmia, Iwould hold Zanubrutinib (Brukinsa) for now. Dr. Sanders can decide about further management upon hospital discharge. documented in this encounter Plan of Treatment Upcoming Encounters Date Type Department Care Team (Late st Contact Info) Description 02/03/2024 8:45 AM EST Immunization/Inject ion Hematology/Oncology Treatment, [place] [address] [place] [phone] Leticia, Chair 11 Hem Onc [facility] 200 [facility] [place] [address] 02/04/2024 9:00 AM EST Pharmacy Pharmacy Hematology Oncology [facility] [address] [place] [address] [facility], [facility] Hem/Onc [address] [place] [address] 02/25/2024 8:30 AM EST Office Visit Otolaryngology [facility] 132 [facility] [place] [address] Marlene Rojas PA-C [facility] [place] [address] 03/04/2024 10:00 AM EST Office Visit Hematology/Oncology [facility] [place] 200 [facility] [place] [phone] Chani Leong CRNP [address] [place] [address] 03/24/2024 3:00 PM EST Office Visit Hematology/Oncology [facility] [place] 200 [facility] [place] [address] Vel Sanders MD 200 [facility] [place] [address] Health Maintenance Due Date Last Done Comments [...] Not on filedocumented as of this encounter Care Teams Audiometrist Relationship Specialty Start Date End Date Nayely Zaman MD [address] [place] [address] [place] [address] PCP - General Internal Medicine 03/08/22 documented as of this encounter
--- OUTSIDE RECORDS SUMMARY | 2024-01-26 09:55 | External Medical Summary | Summary of Care ---
Author Name Unknown Organization [facility] Address [address] [place] [address] Phone [phone] Care Team Providers Care Associate Professor Of Literacy Name Role Phone Nayely Zaman MD Primary Care Provid er Reason for Visit * Reason Onset Date Comments Advice 01/24/2024 Encounter Details Date Type Department Care Team (Late st Contact Info) Description 01/24/2024 Telephone Hematology/Oncology Jaxon Kelly [place] 200 [facility] [place] [phone] [facility]oseph [facility] MD 200 [facility] [address] Advice Allergies Active Allergy Reactions Criticality Noted Date Comments Meloxicam 10/20/2020 Penicillins 07/26/2009 documented as of this encounter (statuses as of 01/24/2024) Medications SYNTHROID 125 MCG OR TABS 1 tab daily Active Nebivolol HCl 20 MG Oral Tablet 1 Tablet daily. 1 03/19/19 17 Active Vitamin D (Ergocalciferol) 1.25 MG (30623 UT) Oral Capsule Take 1 Capsule by [...] Encounter - Shaina Arizmendi RN - 01/24/2024 9:[address] Amarjit Ayala is hospitalist today. TT sent to him that Dr Morse recommends holding brukinsa- he responded that he will discontinue it. Called patient- he took brukinsa this morning but is aware that future doses will be held and why. He states that they are discussing a cardiac ablation at some point at [facility], chances are he will be discharged today or tomorrow. He spoke to his cardiology PA, Gary Ragsdale, and his nebivolol is being changed to metoprolol. He asked that I update Gary on holding brukinsa as well, TT sent to Gary. Asked patient to let us know when he is discharged from the hospital so that we can move up appt with Dr Sanders. He verbalized understanding. * Telephone Encounter - Shaina Arizmendi RN - 01/24/2024 8:03 AM EST TT sent to Chastity to see who hospitalist is today. * Telephone Encounter - Yoseph Morse MD - 01/24/2024 7:52 AM EST He called answering service around 1:20 a.m., he says that he started having palpitation, lightheadedness, he is on his way to the [facility] ER at that time. Recently he was started on Zanubrutinib (Brukinsa) on 01/13/2024 for CLL diagnosis. Reviewed [facility] records, WBC count is around 137 1000, Hemoglobin and hematocrit - 12.6/41.8, Platelet count [id number], -EKG showed sinus rhythm with premature ventricular [...] 8:45 AM EST Immunization/Inject ion Hematology/Oncology Treatment, [place] 200 [place] [phone] Leticia, Chair 11 Hem Onc [place] 200 [place] [address] 02/04/2024 9:00 AM EST Pharmacy Pharmacy Hematology Oncology [facility] [address] [place] [address] [facility], [facility] Hem[facility]Onc [address] [place] [address] 02/25/2024 8:30 AM EST Office Visit Otolaryngology [facility] [address] [place] [address] Marlene Rojas PA-C 132 [place] [address] 03/04/2024 10:00 AM EST Office Visit Hematology/Oncology [facility] [address] [place] [phone] Chani Leong CRNP 400 [facility] [place] [address] 03/24/2024 3:00 PM EST Office Visit Hematology/Oncology [facility] 200 [facility] [place] [phone] Vel Sanders MD [address] [place] [phone] Health Maintenance Due Date Last Done Comments [...] filedocumented as of this encounter Care Teams Associate Professor Of Literacy Relationship Specialty Start Date End Date Nayely Zaman MD [address] [place] [address] [place] [address] PCP - General Internal Medicine 03/08/22 documented as of this encounter
--- OUTSIDE RECORDS SUMMARY | 2024-01-26 09:55 | External Medical Summary | Summary of Care ---
Author Name Unknown Organization [facility] Address [address] [place] [address] Phone [phone] Care Team Providers Care Baseball Club Manager Name Role Phone Nayely Zaman MD Primary Care Provid er Reason for Visit * Reason Onset Date Comments Advice 01/24/2024 Encounter Details Date Type Department Care Team (Late st Contact Info) Description 01/24/2024 Telephone Hematology/Oncology Jaxon Kelly [place] 200 [place] [phone] Yoseph Morse MD 200 [facility] [address] Advice Allergies Active Allergy Reactions Criticality Noted Date Comments Meloxicam 10/20/2020 Penicillins 07/26/2009 documented as of this encounter (statuses as of 01/24/2024) Medications SYNTHROID 125 MCG OR TABS 1 tab daily Active Nebivolol HCl 20 MG Oral Tablet 1 Tablet daily. 1 03/19/19 17 Active Vitamin D (Ergocalciferol) 1.25 MG (78036 UT) Oral Capsule Take 1 Capsule by [...] he is on his way to the [facility] ER at that time. Recently he was started on Zanubrutinib (Brukinsa) on 01/13/2024 for CLL diagnosis. Reviewed [facility] records, WBC count is around 137 1000, Hemoglobin and hematocrit - 12.6/41.8, Platelet count [id number], -EKG showed sinus rhythm with premature ventricular [...] 8:45 AM EST Immunization/Inject ion Hematology/Oncology Treatment, [place] [address] [place] [phone] Leticia, Chair 11 Hem Onc [facility] 200 [place] [address] 02/04/2024 9:00 AM EST Pharmacy Pharmacy Hematology Oncology [facility] [address] [place] [address] [facility], [facility] Hem/Onc [address] [place] [address] 02/25/2024 8:30 AM EST Office Visit Otolaryngology [facility] 132 [facility] [place] [address] Marlene Rojas PA-C 132 [facility] [place] [address] 03/04/2024 10:00 AM EST Office Visit Hematology/Oncology [facility] [place] 200 [place] [phone] Chani Leong CRNP [address] [place] [address] 03/24/2024 3:00 PM EST Office Visit Hematology/Oncology [facility] [place] [address] [facility] [place] [phone] Vel Sanders MD 200 [facility] [place] [address] Health Maintenance Due Date Last Done Comments [...] filedocumented as of this encounter Care Teams Baseball Club Manager Relationship Specialty Start Date End Date Nayely Zaman MD [address] [place] [address] [place] [address] PCP - General Internal Medicine 03/08/22 documented as of this encounter
--- OUTSIDE RECORDS SUMMARY | 2024-01-26 09:55 | External Medical Summary | Summary of Care ---
Author Name Unknown Organization [facility] Address [address] [place] [address] Phone [phone] Care Team Providers Care Director Social Welfare Name Role Phone Nayely Zaman MD Primary Care Provid er Reason for Visit * Reason Onset Date Comments Advice 01/24/2024 Encounter Details Date Type Department Care Team (Late st Contact Info) Description 01/24/2024 Telephone Hematology/Oncology Jaxon Kelly [place] 200 [facility] [place] [phone] Yoseph Morse MD 200 [facility] [address] Advice Allergies Active Allergy Reactions Criticality Noted Date Comments Meloxicam 10/20/2020 Penicillins 07/26/2009 documented as of this encounter (statuses as of 01/24/2024) Medications SYNTHROID 125 MCG OR TABS 1 tab daily Active Nebivolol HCl 20 MG Oral Tablet 1 Tablet daily. 1 03/19/19 17 Active Vitamin D (Ergocalciferol) 1.25 MG (65489 UT) Oral Capsule Take 1 Capsule by [...] Hemoglobin and hematocrit - 12.6/41.8, Platelet count [id number], -EKG showed sinus rhythm with premature ventricular [...] 8:45 AM EST Immunization/Inject ion Hematology/Oncology Treatment, [place] [address] [place] [phone] Leticia, Chair 11 Hem Onc [facility] 200 [facility] [place] [address] 02/04/2024 9:00 AM EST Pharmacy Pharmacy Hematology Oncology [facility] [address] [place] [address] [facility], [facility] Hem/Onc [address] [place] [address] 02/25/2024 8:30 AM EST Office Visit Otolaryngology [facility] 132 [facility] [place] [address] Marlene Rojas PA-C [facility] [place] [address] 03/04/2024 10:00 AM EST Office Visit Hematology/Oncology [facility] [place] 200 [facility] [place] [phone] Chani Leong CRNP 400 [place] [address] 03/24/2024 3:00 PM EST Office Visit Hematology/Oncology [facility] [place] 200 [facility] [place] [phone] Vel Sanders MD 200 [facility] [place] [address] Health Maintenance Due Date Last Done Comments [...] filedocumented as of this encounter Care Teams Director Social Welfare Relationship Specialty Start Date End Date Nayely Zaman MD [address] [place] [address] [place] [address] PCP - General Internal Medicine 03/08/22 documented as of this encounter
--- OUTSIDE RECORDS SUMMARY | 2024-01-26 09:55 | External Medical Summary | Summary of Care ---
Author Name Unknown Organization [facility] Address [address] [place] [address] Phone [phone] Care Team Providers Care Electronics Computer Mechanic Name Role Phone Nayely Zaman MD Primary Care Provid er Reason for Visit * Reason Onset Date Comments Advice 01/24/2024 Encounter Details Date Type Department Care Team (Late st Contact Info) Description 01/24/2024 Telephone Hematology/Oncology Jaxon Kelly [place] 200 [place] [phone] Yoseph Morse MD [facility] [place] [facility] [address] Advice Allergies Active Allergy Reactions Criticality Noted Date Comments Meloxicam 10/20/2020 Penicillins 07/26/2009 documented as of this encounter (statuses as of 01/24/2024) Medications SYNTHROID 125 MCG OR TABS 1 tab daily Active Nebivolol HCl 20 MG Oral Tablet 1 Tablet daily. 1 03/19/19 17 Active Vitamin D (Ergocalciferol) 1.25 MG (15938 UT) Oral Capsule Take 1 Capsule by [...] a cardiac ablation at some point at [facility], chances are he will be discharged today [...] he is on his way to the [facility] ER at that time. Recently he was started on Zanubrutinib (Brukinsa) on 01/13/2024 for CLL diagnosis. Reviewed [facility] records, WBC count is around 137 [address], Hemoglobin and hematocrit - 12.6/41.8, Platelet count [id number], -EKG showed sinus rhythm with premature ventricular [...] 8:45 AM EST Immunization/Inject ion Hematology/Oncology Treatment, [place] [facility] [place] [phone] Leticia, Chair 11 Hem Onc [address] 200 [facility] [place] [address] 02/04/2024 9:00 AM EST Pharmacy Pharmacy Hematology Oncology [facility] [address] [place] [address] [facility], [facility] Hem[facility]Onc [address] [place] [address] 02/25/2024 8:30 AM EST Office Visit Otolaryngology [facility] [address] [place] [address] Marlene Rojas PA-C 132 [place] [address] 03/04/2024 10:00 AM EST Office Visit Hematology/Oncology [facility] [address] [place] [address] Chani Leong CRNP 400 [facility] [place] [address] 03/24/2024 3:00 PM EST Office Visit Hematology/Oncology [facility] [address] Vel Sanders MD [address] [place] [phone] Health Maintenance Due Date Last Done Comments [...] filedocumented as of this encounter Care Teams Electronics Computer Mechanic Relationship Specialty Start Date End Date Nayely Zaman MD [address] [place] [address] [place] [address] PCP - General Internal Medicine 03/08/22 documented as of this encounter
== END 2024-01-25 11:12 | disposition home or self-care (01) ==
LOC: ED 01:36 → 2S 01:36 → SUATTDRO 04:52 → 2S 06:07